=== PATIENT | male | born 1955 | race Caucasian/White ===

== ENCOUNTER → 2016-10-31 | Outpatient (CLI) | payer OTHER ==
[~2016-10-31] MED LIST: ALDA25TA2 PO; ASPI1TAB PO; CAPOTEN PO; LANO250T15 PO; LIPI20TA PO; TOPR25TA PO; TYLE325T5 PO
[2016-10-31 09:01] LABS: MEAN CORPUSCULAR HEMOGLOBIN 29.6 pg (27.0-33.0); MEAN CORPUSCULAR HGB CONC 35.1 g/dl (32.0-36.5); MEAN CORPUSCULAR VOLUME 84.3 fl (80.0-96.0); WHITE BLOOD COUNT 7.9 K/mm3 (4.0-10.0)
[2016-10-31 09:24] LABS: ANION GAP 9 MEQ/L (8-16); BLOOD UREA NITROGEN 16 MG/DL (7-18); CALCIUM LEVEL 8.3 MG/DL (8.8-10.2); CARBON DIOXIDE LEVEL 23 MEQ/L (21-32); CHLORIDE LEVEL 108 MEQ/L (98-107); CHOLESTEROL LEVEL 179 MG/DL (<200); CREATININE FOR GFR 0.76 MG/DL (0.70-1.30); GLOMERULAR FILTRATION RATE > 60.0 (>49); GLUCOSE, FASTING 93 MG/DL (80-110); POTASSIUM SERUM 4.2 MEQ/L (3.5-5.1); SODIUM LEVEL 140 MEQ/L (136-145); TRIGLYCERIDES LEVEL 251 MG/DL (<150)
== END ==
LOC: M WUC 08:25
PROVIDERS: ATTEND Internal Medicine Cardiovascular Disease
DX: E11.9 Type 2 diabetes mellitus without complications (principal); I42.0 Dilated cardiomyopathy; E78.2 Mixed hyperlipidemia

== ENCOUNTER → 2017-11-12 | Outpatient (CLI) | payer OTHER ==
[~2017-11-12] MED LIST changes: -ALDA25TA2 PO; -ASPI1TAB PO; -CAPOTEN PO; +GASTROGRAFIN SOLUTION 30ML (Q9963) As Ordered; +ISOVUE-370 76% 100ML VIAL (Q9967) As Ordered; -LANO250T15 PO; -LIPI20TA PO; -TOPR25TA PO; -TYLE325T5 PO
== END ==
LOC: M RAD 16:03
DX: R19.7 Diarrhea, unspecified (principal); K57.90 Diverticulosis of intestine, part unspecified, without perforation or abscess without bleeding
CPT/HCPCS: Q9963

== ENCOUNTER → 2019-06-17 | Outpatient (CLI) | payer OTHER, SELFPAY ==
[~2019-06-17] MED LIST changes: +ALDA25TA2 PO; +ASPI81TA26 PO; +CAPOTEN PO; +CARV12.5 PO; +CIPR-249 PO; +FLAG500T PO; -GASTROGRAFIN SOLUTION 30ML (Q9963) As Ordered; -ISOVUE-370 76% 100ML VIAL (Q9967) As Ordered; +LANO250T15 PO; +LIPI20TA PO; +LISI-1046 PO; +MILK120011 PO; +TOPR25TA PO; +TRAM1CAP15 PO; +TRAM50TA2 PO; +TYLE325T5 PO
[2019-06-17 15:29] LABS: APPEARANCE, URINE CLEAR (CLEAR); BACTERIA, URINE AUTO NEGATIVE (NEGATIVE); BILIRUBIN, URINE AUTO NEGATIVE (NEGATIVE); BLOOD, URINE BLOOD NEGATIVE (NEGATIVE); COLOR, URINE YELLOW (YELLOW); GLUCOSE, URINE (UA) AUTO NEGATIVE (NEGATIVE); KETONE, URINE AUTO NEGATIVE (NEGATIVE); LEUKOCYTE ESTERASE, URINE AUTO NEGATIVE (NEGATIVE); MUCUS, URINE SMALL (NEGATIVE); NITRITE, URINE AUTO NEGATIVE (NEGATIVE); PROTEIN, URINE AUTO NEGATIVE (NEGATIVE); RBC, URINE AUTO 1 /HPF (0-3); SPECIFIC GRAVITY URINE AUTO 1.017 (1.002-1.035); SQUAMOUS EPITHELIAL CELL UR AU 0 /HPF (0-6); UROBILINOGEN, URINE AUTO 0.2 mg/dL (0.0-2.0); WBC, URINE AUTO 0 /HPF (0-3)
[2019-06-17 15:32] LABS: HEMATOCRIT 45.1 % (42.0-52.0); HEMOGLOBIN 15.1 g/dl (13.5-17.5); MEAN CORPUSCULAR HGB CONC 33.5 g/dl (32.0-36.5); MEAN CORPUSCULAR VOLUME 86.6 fl (80.0-96.0); PLATELET COUNT, AUTOMATED 213 10^3/uL (150-450); RED BLOOD COUNT 5.21 10^6/uL (4.30-6.10); WHITE BLOOD COUNT 9.5 10^3/uL (4.0-10.0)
[2019-06-17 15:40] LABS: HEMOGLOBIN A1c 5.9 %
[2019-06-17 15:41] LABS: ALT/SGPT 28 U/L (12-78); BILIRUBIN,TOTAL 0.5 MG/DL (0.2-1.0); BLOOD UREA NITROGEN 15 MG/DL (7-18); CALCIUM LEVEL 8.9 MG/DL (8.8-10.2); CARBON DIOXIDE LEVEL 22 MEQ/L (21-32); CHLORIDE LEVEL 107 MEQ/L (98-107); CREATININE FOR GFR 0.79 MG/DL (0.70-1.30); GLOMERULAR FILTRATION RATE > 60.0 (>49); GLUCOSE, FASTING 108 MG/DL (70-100); POTASSIUM SERUM 3.8 MEQ/L (3.5-5.1); SODIUM LEVEL 138 MEQ/L (136-145)
== END ==
LOC: M WUC 14:17
PROVIDERS: ATTEND Family Medicine
DX: Z12.5 Encounter for screening for malignant neoplasm of prostate (principal); R39.15 Urgency of urination; I50.42 Chronic combined systolic (congestive) and diastolic (congestive) heart failure; R73.09 Other abnormal glucose
CPT/HCPCS: 36415; 80053; 81001; 83036; 85027; 87086; G0103

== ENCOUNTER → 2019-06-22 | Outpatient (REF) | payer OTHER, SELFPAY ==
[2019-06-22 13:04] LABS: CHOLESTEROL RISK RATIO 5.064 (<5)
== END ==
LOC: M SFHCADAM 10:17
PROVIDERS: ATTEND Family Medicine
DX: E78.2 Mixed hyperlipidemia (principal)

== ENCOUNTER → 2020-04-13 | Outpatient (CLI) | payer OTHER ==
[~2020-04-13] MED LIST changes: -LISI-1046 PO; +LISI2.5T2 PO
--- NOTE | 2020-04-13 17:19 | REP ---
INDICATION: ARTHRITIS OF RIGHT HAND. COMPARISON: None. TECHNIQUE: Four views. FINDINGS: Four views of the right hand demonstrate moderate osteoarthritic narrowing and spur formation at the 1st metacarpal-carpal articulation. There is mild osteoarthritic spurring at the IP joint of the thumb as well as the DIP joints of the index, long, and small fingers. No erosive changes are appreciated. Overall mineralization pattern is normal.. No fracture or subluxation is seen. No opaque foreign body noted. IMPRESSION: Osteoarthritic changes as noted above.. <Electronically signed by Sourav Henry > 04/13/20 [id number]
--- NOTE | 2020-04-13 17:21 | REP ---
INDICATION: LOW BACK PAIN OF OVER 3 MONTHS DURATION. COMPARISON: None. TECHNIQUE: Five views. FINDINGS: Lumbar vertebral body heights are preserved. Alignment is normal. There is no evidence of spondylolysis or spondylolisthesis. There is degenerative narrowing of the L4-5 disc with anterior osteophyte formation. Other disc spaces are maintained. There is minimal vascular calcification. There is facet hypertrophy and sclerosis on the right at L5-S1. Sacrum and SI joints are intact. Psoas margins are symmetric. Visualized bowel gas pattern is unremarkable. No bony destructive lesion. IMPRESSION: Degenerative disc changes at L4-5. Osteoarthritic facet disease on the right at L5-S1. No acute bony abnormality. <Electronically signed by Sourav Henry > 04/13/20 [id number]
== END ==
LOC: M ADAMS 16:01
PROVIDERS: ATTEND Family Medicine
DX: M19.041 Primary osteoarthritis, right hand (principal); M51.36 Other intervertebral disc degeneration, lumbar region; M54.5 Low back pain

== ENCOUNTER → 2020-04-13 | Outpatient (REF) | payer OTHER ==
[2020-04-13 18:26] LABS: HEMATOCRIT 44.4 % (42.0-52.0); HEMOGLOBIN 15.2 g/dl (13.5-17.5); MEAN CORPUSCULAR HEMOGLOBIN 29.5 pg (27.0-33.0); MEAN CORPUSCULAR HGB CONC 34.2 g/dl (32.0-36.5); PLATELET COUNT, AUTOMATED 227 10^3/uL (150-450); RED BLOOD COUNT 5.16 10^6/uL (4.30-6.10); WHITE BLOOD COUNT 10.2 10^3/uL (4.0-10.0)
[2020-04-13 18:58] LABS: ALBUMIN 3.9 GM/DL (3.2-5.2); ALT/SGPT 30 U/L (12-78); BILIRUBIN,TOTAL 0.3 MG/DL (0.2-1.0); BLOOD UREA NITROGEN 18 MG/DL (7-18); C REACTIVE PROTEIN QUANTITATIV 0.94 MG/DL (0.00-0.30); CALCIUM LEVEL 9.3 MG/DL (8.8-10.2); CARBON DIOXIDE LEVEL 23 MEQ/L (21-32); CHLORIDE LEVEL 104 MEQ/L (98-107); CHOLESTEROL LEVEL 190 MG/DL (<200); CHOLESTEROL RISK RATIO 5.588 (<5); CREATININE FOR GFR 0.77 MG/DL (0.70-1.30); GLOMERULAR FILTRATION RATE > 60.0 (>49); GLUCOSE, FASTING 91 MG/DL (70-100); HDL CHOLESTEROL 34 MG/DL (>40); LDL CHOLESTEROL 92 MG/DL (<100); NON-HDL-C 156 MG/DL; POTASSIUM SERUM 3.8 MEQ/L (3.5-5.1); RHEUMATOID FACTOR QUANT < 10.0 IU/ML (<15.0); SODIUM LEVEL 139 MEQ/L (136-145); TOTAL PROTEIN 7.1 GM/DL (6.4-8.2); TRIGLYCERIDES LEVEL 318 MG/DL (<150)
[2020-04-16 18:16] LABS: ANA (HEP2) Negative (.)
== END ==
LOC: M SFHCADAM 15:55
PROVIDERS: ATTEND Family Medicine
DX: I42.0 Dilated cardiomyopathy (principal); R73.09 Other abnormal glucose; E78.2 Mixed hyperlipidemia; Z12.5 Encounter for screening for malignant neoplasm of prostate; M19.041 Primary osteoarthritis, right hand; M54.5 Low back pain

== ENCOUNTER → 2020-10-03 | Outpatient (REF) | payer OTHER ==
[2020-10-03 13:18] LABS: HEMATOCRIT 45.7 % (42.0-52.0); MEAN CORPUSCULAR HEMOGLOBIN 28.4 pg (27.0-33.0); MEAN CORPUSCULAR HGB CONC 32.8 g/dl (32.0-36.5); MEAN CORPUSCULAR VOLUME 86.4 fl (80.0-96.0); PLATELET COUNT, AUTOMATED 222 10^3/uL (150-450); RED BLOOD COUNT 5.29 10^6/uL (4.30-6.10); WHITE BLOOD COUNT 7.4 10^3/uL (4.0-10.0)
[2020-10-03 13:39] LABS: HEMOGLOBIN A1c 5.4 %
[2020-10-03 14:10] LABS: ALBUMIN 3.8 GM/DL (3.2-5.2); ALT/SGPT 25 U/L (12-78); BILIRUBIN,TOTAL 0.4 MG/DL (0.2-1.0); BLOOD UREA NITROGEN 13 MG/DL (7-18); CALCIUM LEVEL 9.1 MG/DL (8.8-10.2); CARBON DIOXIDE LEVEL 23 MEQ/L (21-32); CHLORIDE LEVEL 107 MEQ/L (98-107); CHOLESTEROL LEVEL 151 MG/DL (<200); CHOLESTEROL RISK RATIO 4.718 (<5); CREATININE FOR GFR 0.55 MG/DL (0.70-1.30); GLOMERULAR FILTRATION RATE > 60.0 (>49); GLUCOSE, FASTING 80 MG/DL (70-100); HDL CHOLESTEROL 32 MG/DL (>40); LDL CHOLESTEROL 75 MG/DL (<100); NON-HDL-C 119 MG/DL; POTASSIUM SERUM 4.3 MEQ/L (3.5-5.1); SODIUM LEVEL 138 MEQ/L (136-145); TOTAL PROTEIN 6.6 GM/DL (6.4-8.2); TRIGLYCERIDES LEVEL 220 MG/DL (<150)
[2020-10-03 14:11] LABS: FREE T4 0.95 NG/DL (0.76-1.46); THYROID STIMULATING HORMONE 0.977 uIU/ML (0.358-3.740)
== END ==
LOC: M SFHCADAM 09:06
PROVIDERS: ATTEND Family Medicine
DX: I42.0 Dilated cardiomyopathy (principal); I50.42 Chronic combined systolic (congestive) and diastolic (congestive) heart failure; E78.2 Mixed hyperlipidemia; R73.09 Other abnormal glucose

== ENCOUNTER 2020-12-16 11:41 | Inpatient (IN) | payer OTHER ==
[~2020-12-16] VITALS: Ht 177.8 cm; Wt 97.8 kg
[2020-12-16] VITALS (12 sets, daily range): BP systolic 100–142; BP diastolic 63–97
[2020-12-16] MEDS: MOM 30ML SUSPENSION UDC PO SCH (09:00)
[2020-12-16] MEDS ORDERED: LOSA25TA14 PO (12:05)
[2020-12-16 12:13] LABS: BASO # 0.1 10^3/uL (0.0-0.2); BASO % 0.6 % (0.0-1.0); EOS # 0.2 10^3/uL (0.0-0.5); HEMATOCRIT 45.4 % (42.0-52.0); HEMOGLOBIN 15.8 g/dl (13.5-17.5); LYMPH # 2.1 10^3/uL (1.5-5.0); MEAN CORPUSCULAR HEMOGLOBIN 29.5 pg (27.0-33.0); MEAN CORPUSCULAR HGB CONC 34.8 g/dl (32.0-36.5); MEAN CORPUSCULAR VOLUME 84.7 fl (80.0-96.0); MONO # 0.7 10^3/uL (0.0-0.8); NEUTROPHILS # 4.9 10^3/uL (1.5-8.5); NEUTROPHILS % 60.8 % (36.0-66.0); PLATELET COUNT, AUTOMATED 216 10^3/uL (150-450); RED BLOOD COUNT 5.36 10^6/uL (4.30-6.10); WHITE BLOOD COUNT 8.1 10^3/uL (4.0-10.0)
--- NOTE | 2020-12-16 12:28 | REP ---
INDICATION: DYSPNEA/COUGH COMPARISON: 01/17/2015 TECHNIQUE: Portable AP view of the chest FINDINGS: There is a large right pneumothorax with greater than 50% loss of volume. The mediastinum and cardiac silhouette are within normal limits in appearance and position. The left hemithorax is well aerated and clear. Skeletal structures are intact. IMPRESSION: Large right pneumothorax. Findings were immediately discussed with ER staff. <Electronically signed by Navin Kohler > 12/16/20 [id number]
[2020-12-16] MEDS ORDERED: MIDAZOLAM INJ 2MG/2ML VIAL (J2250 PER 1MG) As Ordered ONE ×2 (12:46→12:47)
[2020-12-16] MEDS ORDERED: MIDAZOLAM INJ 2MG/2ML VIAL (J2250 PER 1MG) IV ONE ×2 (12:46→12:47)
[2020-12-16] MEDS ORDERED: flumazeniL 0.5 MG/5 ML VIAL As Ordered ONE (12:46)
[2020-12-16] MEDS ORDERED: LIDOCAINE 1% MDV 20ML VIAL SC ONE (12:47)
[2020-12-16] MEDS ORDERED: LIDOCAINE 1% MDV 20ML VIAL As Ordered ONE (12:47)
[2020-12-16 12:51] LABS: ALBUMIN 3.9 GM/DL (3.2-5.2); ALT/SGPT 72 U/L (12-78); BILIRUBIN,DIRECT < 0.1 MG/DL (0.0-0.2); BILIRUBIN,TOTAL 0.5 MG/DL (0.2-1.0); BLOOD UREA NITROGEN 13 MG/DL (7-18); CALCIUM LEVEL 8.7 MG/DL (8.8-10.2); CARBON DIOXIDE LEVEL 21 MEQ/L (21-32); CHLORIDE LEVEL 107 MEQ/L (98-107); CK-MB VALUE MASS 2.5 NG/ML (<3.6); CPK CREATINE PHOSPHOKINASE 163 U/L (39-308); GLOMERULAR FILTRATION RATE > 60.0 (>49); GLUCOSE, FASTING 121 MG/DL (70-100); MB/CK RELATIVE INDEX 1.53 (< OR =4); POTASSIUM SERUM 4.7 MEQ/L (3.5-5.1); SODIUM LEVEL 135 MEQ/L (136-145); TOTAL PROTEIN 7.1 GM/DL (6.4-8.2); TROPONIN I < 0.02 NG/ML (< 0.10)
[2020-12-16] MEDS ORDERED: ACET-907 PO (13:31)
[2020-12-16] MEDS ORDERED: CARV12.5 PO (13:31)
[2020-12-16] MEDS ORDERED: ONDANSETRON 4MG/2ML VIAL IV PRN (13:35)
[2020-12-16] MEDS ORDERED: BISACODYL 10 MG SUPP PR PRN (13:35)
[2020-12-16] MEDS ORDERED: ACETAMINOPHEN TAB 650MG DOSE (2X325MG) PO PRN (13:35)
[2020-12-16] MEDS ORDERED: LEVALBUTEROL 1.25 MG/0.5 ML CONCENTRATE NEB NEB PRN (13:35)
[2020-12-16] MEDS ORDERED: KCL 20MEQ IN D5/NS 1000ML 1,000 ML IV SCH (13:35)
--- NOTE | 2020-12-16 13:50 | REP ---
INDICATION: chest tube placement COMPARISON: 12/16/2020 at 12:06 p.m. TECHNIQUE: Portable AP view of the chest FINDINGS: Right-sided chest tube has been placed and the right lung has been re-expanded with only small residual right apical pneumothorax suggested. Lung lipscomb demonstrate chronic interstitial changes. Small area of superimposed atelectasis in the right midlung zone and possible atelectasis at the bilateral lung bases suggested. No effusion. Stable cardiomegaly. Skeletal structures intact. IMPRESSION: 1. Status post right chest tube with near complete expansion of the right lung. 2. Chronic changes and minimal atelectasis cannot be excluded. <Electronically signed by Navin Kohler > 12/16/20 [id number]
[2020-12-16 14:26] LABS: INR 0.99; PROTHROMBIN TIME 13.3 SECONDS (12.5-14.3)
[2020-12-16 14:27] LABS: PARTIAL THROMBOPLASTIN TIME 27.5 SECONDS (24.2-38.5)
[2020-12-16] MEDS: LEVALBUTEROL 1.25 MG/0.5 ML CONCENTRATE NEB NEB SCH ×2 (14:34→21:25)
[2020-12-16] MEDS: KETOROLAC 30 MG/ML 1ML VIAL IV SCH ×2 (14:48→21:25)
--- NOTE | 2020-12-16 14:48 | REP ---
INDICATION: status of underlying lung after pneumothorax COMPARISON: 01/17/2015 TECHNIQUE: Axial noncontrast images from the thoracic inlet to the upper abdomen with coronal and sagittal reformations. This CT examination was performed using the following dose reduction techniques: Automated exposure control, adjustment of mA and/or kv according to the patient's size, and use of iterative reconstruction technique. FINDINGS: Right-sided chest tube via anterior approach extends into the apex. Small amount of postprocedural subcutaneous emphysema noted and no residual pneumothorax is identified. Small amount of right basilar atelectasis noted. Lung lipscomb demonstrate advanced chronic COPD/emphysematous changes along with scattered scarring. Tracheobronchial tree is patent. Stable mediastinal adenopathy noted. Mild stable cardiomegaly. Thoracic aorta is normal. Musculoskeletal structures are intact. IMPRESSION: 1. Right chest tube via anterior approach extends to the apex. No residual pneumothorax. 2. Minimal right basilar atelectasis. 3. Chronic advanced COPD/emphysematous changes with scattered scarring. <Electronically signed by Navin Kohler > 12/16/20 [id number]
[2020-12-16] MEDS: PANTOPRAZOLE 40MG TAB (PROTONIX) PO SCH (14:56)
[2020-12-16 15:12] LABS: RSV AMPLIFICATION NEGATIVE (NEGATIVE)
[2020-12-16] MEDS: NORCO, ANEXSIA 5/325MG TABLET (HYDROcodone/ACETAMINOPHEN) PO PRN (16:32)
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
[2020-12-16] MEDS: HEPARIN SOD (PORCINE) 5000UNITS/ML 1ML VIAL/SYRINGE SC SCH (17:52)
[2020-12-16] MEDS: PERCOCET 5MG/325MG TAB PO PRN (18:57)
--- NOTE | 2020-12-16 19:18 | ECGEPIP ---
[facility] - ED Test Date: 2020-12-16 Pat Name: AFSANEH MEZA Department: Room: [place] [address] Gender: Male Security Clerk: PEDRITO : [id number] Requested By: Roberto Zuleta Order Number: [id number] Reading MD: Roberto Zuleta Measurements Intervals [place] Rate: 103 P: OK: QRS: -74 QRSD: 132 T: 61 QT: 374 QTc: 489 Interpretive Statements Atrial fibrillation with rapid ventricular response Left axis deviation Nonspecific intraventricular block Cannot rule out Septal infarct , age undetermined Nonspecific ST T wave changes Prolonged QTc cw 01/19/[address] T wave changes Electronically Signed on 12-16-2020 19:17:51 EDT by Roberto Zuleta
[2020-12-16] MEDS ORDERED: LOSARTAN 25 MG TAB PO SCH (21:00)
[2020-12-16] MEDS: DOCUSATE SODIUM 100MG CAPSULE PO SCH (21:24)
[2020-12-16] MEDS: CARVedilol 12.5 MG TAB PO SCH (21:24)
[2020-12-17] VITALS (7 sets, daily range): BP systolic 92–118; BP diastolic 58–73
[2020-12-17] MEDS: KETOROLAC 30 MG/ML 1ML VIAL IV SCH ×4 (03:45→20:52)
[2020-12-17 05:37] LABS: BASO % 0.5 % (0.0-1.0); EOS # 0.3 10^3/uL (0.0-0.5); EOS % 4.1 % (0.0-3.0); HEMATOCRIT 40.8 % (42.0-52.0); HEMOGLOBIN 13.8 g/dl (13.5-17.5); LYMPH # 2.2 10^3/uL (1.5-5.0); LYMPH % 28.4 % (24.0-44.0); MEAN CORPUSCULAR HEMOGLOBIN 29.1 pg (27.0-33.0); MEAN CORPUSCULAR HGB CONC 33.8 g/dl (32.0-36.5); MEAN CORPUSCULAR VOLUME 85.9 fl (80.0-96.0); MONO # 0.9 10^3/uL (0.0-0.8); MONO % 12.1 % (2.0-8.0); NEUTROPHILS # 4.2 10^3/uL (1.5-8.5); NEUTROPHILS % 54.6 % (36.0-66.0); PLATELET COUNT, AUTOMATED 164 10^3/uL (150-450); RED BLOOD COUNT 4.75 10^6/uL (4.30-6.10); WHITE BLOOD COUNT 7.8 10^3/uL (4.0-10.0)
[2020-12-17 05:38] LABS: ABG BASE EXCESS -2.9 (-2.0-2.0); ABG O2 SATURATION 94.3 % (95.0-99.0); ABG PARTIAL PRESSURE CO2 34.1 mmHg (35.0-45.0); ABG PARTIAL PRESSURE O2 70.8 mmHg (75.0-100.0); ABG pH (ARTERIAL) 7.407 UNITS (7.350-7.450)
[2020-12-17] MEDS: HEPARIN SOD (PORCINE) 5000UNITS/ML 1ML VIAL/SYRINGE SC SCH (05:52)
[2020-12-17 06:04] LABS: BLOOD UREA NITROGEN 19 MG/DL (7-18); CALCIUM LEVEL 8.4 MG/DL (8.8-10.2); CARBON DIOXIDE LEVEL 22 MEQ/L (21-32); CHLORIDE LEVEL 108 MEQ/L (98-107); CREATININE FOR GFR 0.72 MG/DL (0.70-1.30); GLOMERULAR FILTRATION RATE > 60.0 (>49); GLUCOSE, FASTING 100 MG/DL (70-100); POTASSIUM SERUM 3.8 MEQ/L (3.5-5.1); SODIUM LEVEL 139 MEQ/L (136-145)
[2020-12-17] MEDS: LEVALBUTEROL 1.25 MG/0.5 ML CONCENTRATE NEB NEB SCH ×3 (07:24→19:50)
--- NOTE | 2020-12-17 08:32 | REP ---
INDICATION: pnemothx COMPARISON: 12/16/2020 TECHNIQUE: PA and lateral. FINDINGS: Right-sided chest tube extends towards the apex and the right lung has been re-expanded with suspected bullous changes primarily noted at the right upper lung zone. No obvious residual pneumothorax. Diffuse chronic emphysematous and interstitial changes with suggestions for trace basilar atelectasis. No discrete focal consolidation. No obvious effusion. Mediastinum and cardiac silhouette are stable. Skeletal structures are intact. IMPRESSION: 1. Re-expansion to the right lung with suspected bullous changes at the right apex and no obvious residual pneumothorax. 2. Diffuse chronic emphysematous and interstitial changes with suspected trace left basilar atelectasis. <Electronically signed by Navin Kohler > 12/17/20 [id number]
[2020-12-17] MEDS ORDERED: ASPIRIN 81MG ENTERIC TABLET PO SCH (09:00)
[2020-12-17] MEDS: DOCUSATE SODIUM 100MG CAPSULE PO SCH ×2 (09:25→20:53)
[2020-12-17] MEDS: MOM 30ML SUSPENSION UDC PO SCH (09:26)
[2020-12-17] MEDS: CARVedilol 12.5 MG TAB PO SCH (09:26)
[2020-12-17] MEDS: PANTOPRAZOLE 40MG TAB (PROTONIX) PO SCH (09:26)
[2020-12-17 10:31] LABS: FREE T4 0.89 NG/DL (0.76-1.46); MAGNESIUM LEVEL 2.2 MG/DL (1.8-2.4)
[2020-12-17 11:10] LABS: NT-PRO BNP 1466 PG/ML (<125)
[2020-12-17] MEDS: PERCOCET 5MG/325MG TAB PO PRN (11:10)
--- NOTE | 2020-12-17 12:15 | IPN ---
PROGRESS NOTE DATE: 12/17/2020 SUBJECTIVE: Hilton is seen in the PCU. He had a spontaneous right pneumothorax and has extensive emphysema with blebs on CT of the chest. He used to smoke cigarettes. He still smokes marijuana on an almost daily basis so there is constant smoke exposure. We discussed this at length today. He is still in atrial fibrillation. His rate is controlled. He has a history of viral-induced cardiomyopathy, but not has not had atrial fibrillation. His glassware verifier is the cardiology group out of [facility]. OBJECTIVE: VITAL SIGNS: Blood pressure 112/73, pulse 86, respirations 18, 93% O2 saturation. GENERAL APPEARANCE: Alert, conversant, and in no distress. NECK: No JVD. LUNGS: Decreased breath sounds and clear bilaterally. HEART: Regular rate and rhythm. ABDOMEN: Soft and nontender with no masses. EXTREMITIES: No peripheral edema. LABORATORY DATA: CBC is unremarkable. Electrolytes unremarkable. IMPRESSION AND PLAN: 1. Atrial fibrillation. We will get an echocardiogram, run some thyroid functions on him, and start anticoagulant with Eliquis. Will consult cardiology and see whether they think he is a candidate for attempt at conversion. 2. Spontaneous pneumothorax from emphysema/blebs. Chest tube management per Dr. Klein. The importance of stopping smoking of any kind of product discussed at length with the patient today.
--- NOTE | 2020-12-17 12:38 | HPE ---
HISTORY AND PHYSICAL DATE OF ADMISSION: 12/16/2020 Patient seen at the urgent request of the emergency room for shortness of breath, chest pain, and a right pneumothorax. HISTORY OF PRESENT ILLNESS: Patient is a 65-year-old white male who early this morning as he woke up experienced sudden onset of the shortness of breath with chest pressure. He has a known cardiomyopathy, treated by cardiology in [place]. He sought medical attention and was found to have a large right-sided pneumothorax. Prior to the episode he had no cough, no fever, chills, or sweats, and no sputum production. He has had no chest pain prior to this event and no dysphagia. There has been no weight loss. MEDICAL HISTORY: The above cardiomyopathy and hypertension. Denies diabetes or prior cerebrovascular accidents (CVAs). 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 PAST SURGERIES: 1. Umbilical hernia. 2. Tympanic ear surgery in the remote past. HOME MEDICATIONS: - Tylenol 650 mg four times a day as needed for pain - aspirin 81 mg daily - carvedilol 12.5 mg twice a day - losartan 25 mg every night HABITS: Smokes about a pack of cigarettes a week but also indulges in marijuana daily. Drinks socially about once a week. No other illicit drugs. EXPOSURES: Has cats at home. No dogs or birds. TRAVEL HISTORY: He has been to the [facility] in the past. He has also been to the [facility] and [facility]. 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 FAMILY HISTORY: Not pertinent to the acute situation. REVIEW OF SYSTEMS: CONSTITUTIONAL: Without fever, chills, sweats, night sweats, or weight loss. NOSE: Without epistaxis. MOUTH: Has his own teeth. PULMONARY: See history of present illness (HPI). Without paroxysmal nocturnal dyspnea or orthopnea. Cannot get comfortable on his back right now. Has to lie on his left side. CARDIAC: Has the above cardiomyopathy. He was found to be in new-onset atrial fibrillation today in the emergency room with a controlled rate of about 100. Also has hypertension. No intermittent claudication. GASTROINTESTINAL: Without nausea, vomiting, diarrhea, constipation, melena, or hematochezia, abdominal pain, or hematemesis. GENITOURINARY: Without dysuria, hematuria, or history of renal stones. NEUROLOGIC: Without paresthesias, paralyses, or prior seizures. HEMATOLOGIC: Without prolonged bleeding times. ENDOCRINE: Without diabetes. Without thyroid disease. PSYCHIATRIC: Without pathological anxieties, depressions, or psychoses. PHYSICAL EXAMINATION: Well-developed, well-nourished, obese white male in moderate distress from shortness of breath, lying on his left side. Temperature 97.7, heart rate is 106 in atrial fibrillation with a respiratory rate of 20-24 without the use of accessory muscles, who is 91% saturated on 2 liters nasal cannula and whose blood pressure is 142/87. Eyes: Pupils equal, round, reactive to light. Extraocular movements are intact. Sclerae anicteric. He is blind in his left eye from prior trauma. Nose without deformity. Mouth shows his mucous membranes to be pink and moist. Lips and commissures without lesions. He has multiple missing teeth. Neck is supple. There is no jugular venous distention. No subcutaneous emphysema. Trachea is midline. There is no lymphadenopathy or thyromegaly. He has 2+ carotid pulses. No bruits. Lungs show markedly decreased breath sounds on the right side with hyperresonant percussion note on the right side. I hear no wheezes, rhonchi, or rales in the left lung. Cardiac exam is without murmurs, clicks, gallops, or rubs. I cannot feel his point of maximal impulse (PMI). S1 and S2 are normal. Abdomen is soft and nontender. Bowel sounds are positive. There is no hepatomegaly. No costovertebral angle (CVA) tenderness. Extremities show no pretibial edema, no calf tenderness, no differential swelling of the upper extremities. Skin is warm, dry, and perfused without cyanosis or mottling, including that of the nailbeds and knees. Neurologic shows II-XII intact. Normal gross motor, gross sensation intact. Gait is not tested. Psychiatric shows him to be awake, alert, and oriented times three with appropriate mood and affect and conversational. His white count today is 8.1 with a hemoglobin and hematocrit of 15.8 and 45.4, respectively. Platelet count is 216, and differential shows 16% neutrophils, 26% lymphocytes, 9% monocytes. There are no immature forms or toxic granulations. Chemistries show essentially normal electrolytes with a marginally low sodium of 135. BUN and creatinine of 13 and 0.6 with a glucose of 121, calcium 8.7, and a corresponding albumin of 3.9. AST and ALT are normal. CK-MB and troponins are normal. There is no PT/INR, and there are no blood gases. His chest x-ray shows a 75%-80% pneumothorax on the right. His Costophrenic angles are sharp with a deep sulcus sign. The mediastinum is in the midline. He has a rather globular heart. IMPRESSION: 1. Acute pneumothorax. 2. Shortness of breath. 3. History of cardiomyopathy. 4. Hypertension. 5. New-onset atrial fibrillation with controlled response. PLAN AND DISCUSSION: I will immediately place an anterior-superior chest tube. His last echocardiogram done in 2018 showed decreased ejection fraction of 35%-40%. He had a dilated left atrium. He had mild to moderate mitral insufficiency. After placing the chest tube, I am hoping that the pressure changes in the thorax will normalize, and his rhythm will return to sinus rhythm. He has not been in atrial fibrillation before, evidently, according to the patient. His prior EKGs, the latest of which was in 2014, showed a sinus rhythm. I will ask Dr. Larson of the hospitalist group to consult on him for management of atrial fibrillation if it does not resolve itself in the next 24 hours. I do not think we need to anticoagulate him right away. I do worry about his cardiomyopathy. I am not sure what that is secondary to. I will also obtain a CT scan on him tomorrow to look at the underlying lung parenchyma.
--- NOTE | 2020-12-17 12:56 | IPN ---
PROGRESS NOTE DATE: 12/17/2020 This is now the first hospital day for Mr. Padilla status post placing a chest tube for an 80% pneumothorax. He is certainly breathing a whole lot better and feels a lot less in distress. Pain is being controlled well at the chest tube insertion site with oral analgesics. His vital signs show a maximum temperature of 97.7 with a heart rate that ranges between 82-89 in atrial fibrillation with a respiratory rate of 16-20 without the use of accessory muscles, who is 93%-96% saturated on room air and whose blood pressure is ranging between 112/73 to 100/58. His intake and output for the past 24 hours have been recorded as 600 in and 520 out for a negativity of 70 mL. His weight today is 97.6 kg compared to 97.9 kg yesterday. PHYSICAL EXAMINATION: His lungs show equal breath sounds on either side without wheezes, rhonchi, or rales. Percussion notes are full to the diaphragm. Cardiac exam is without murmurs, clicks, gallops, or rubs. I cannot feel his point of maximal impulse (PMI). S1 and S2 are normal. Abdomen is soft and nontender. Bowel sounds are positive. There is no hepatomegaly. No costovertebral angle (CVA) tenderness. Extremities show no pretibial edema, no calf tenderness, no differential swelling of the upper extremities. Skin is warm, dry, and perfused without cyanosis or mottling, including that of the nailbeds and knees. Neck is supple. There is no jugular venous distention. No subcutaneous emphysema. Trachea is midline. Mouth shows the mucous membranes to be pink and moist. Lips and commissures without lesions. No thrush. Eyes show his pupils to be equal and reactive. Extraocular motion intact. Sclerae anicteric. Neurologic shows II-XII intact. Normal gross motor, gross sensation intact. Gait is not tested. Psychiatric shows him to be awake, alert, and oriented times three with appropriate mood and affect and conversational. His white count today is 7.8 with a hemoglobin and hematocrit of 13.8 and 40.8, respectively. Platelet count is 164 and stable, and differential shows 54% neutrophils, 28% lymphocytes, 12% monocytes. There are no immature forms or toxic granulations. His chemistries show normal electrolytes with a BUN and creatinine of 19 and 0.72, a glucose of 100, and a calcium of 8.4. Blood gases this morning show a pH of 7.40 with a pCO2 of 34, a pO2 of 70, and a base excess of -2.9. His PT/INR yesterday was returned as 13.3 and 0.99, respectively, with a PTT of 27 seconds. He is COVID negative. His chest x-ray today shows his lung fully expanded to the chest wall. Costophrenic angles are sharp. There are no infiltrates. His chest CT done yesterday after placing the chest tube shows major emphysematous changes, particularly in the upper lobes. It was done without contrast. He does have coronary artery disease down the left anterior descending coronary artery as well as some calcifications on the circumflex coronary artery. Liver is without lesions. Adrenals have a normal configuration. I see no pulmonary masses. He does have a prominent right paratracheal node, which measures 1.4 cm in its largest dimension. IMPRESSION: 1. Spontaneous pneumothorax. 2. Emphysema. 3. Dilated cardiomyopathy. 4. New-onset atrial fibrillation. 5. Obesity. 6. Hypertension. PLAN AND DISCUSSION: I will take his chest tubes off suction today. We are going to wait another maybe 24 hours for him to convert. In the meantime I will anticoagulate if he does not convert and if he needs other chemical or electrical cardioversion.
--- NOTE | 2020-12-17 13:01 | RO ---
OPERATIVE NOTE DATE OF OPERATION: 12/16/2020 PREPROCEDURE DIAGNOSIS: Right pneumothorax. POSTPROCEDURE DIAGNOSIS: Right pneumothorax. PROCEDURE: Insertion of a right anterior-superior chest tube under moderate sedation. SURGEON: Dane Klein M.D. SUGAR HOUSE SUPERVISOR: None. ANESTHESIA: Moderate sedation with 4 mg Versed. DESCRIPTION OF PROCEDURE: Under moderate sedation achieved with 4 mg of Versed, the patient was prepped and draped in the usual sterile fashion. The skin, subcutaneous tissue, and pleura over the second rib were infiltrated with 1% Lidocaine. A tunnel was created to the first intercostal space above the second rib. A #20 chest tube was placed without difficulty. Secured to the chest wall with a#2 Tevdek suture and connected to the Pleur-Evac. The patient tolerated the procedure well and a chest x-ray is pending.
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
[2020-12-17] MEDS ORDERED: RIVAROXABAN 10 MG TAB (XARELTO) PO SCH (18:00)
--- NOTE | 2020-12-17 18:08 | ECHO ---
ECHOCARDIOGRAM DATE OF PROCEDURE: 12/17/2020 Age: 65 Gender: Male Height: 70 inches Weight: 215 pounds REFERRING PHYSICIAN: Abdelrahman Larson MD INDICATION: Systolic heart failure, dilated cardiomyopathy. MEASUREMENTS: 2D Measurements: Aortic root 3.2 cm Left atrium 3.5 cm Left ventricle diastole 6.0 cm Intraventricular septum 1.06 cm Posterior wall 1.2 cm Inferior vena cava 2.5 cm Doppler Measurements: No aortic stenosis No aortic regurgitation Aortic valve velocity 114 cm/s LVOT velocity 68.7 cm/s LVOT VTI 13.7 cm Very mild mitral regurgitation Very mild tricuspid regurgitation Estimated right ventricular systolic pressure 25-30 mmHg Estimated right atrial pressure 5-10 mmHg Pulmonary acceleration time 121 msec suggesting normal PA systolic pressure. MITRAL ANNULAR TISSUE DOPPLER E prime septal 6.9 cm/s, E prime lateral 12.1 cm/s DESCRIPTION: Rhythm was atrial fibrillation. Image quality was good. This was a 2D, M-mode, color flow Doppler, and pulsed wave Doppler examination including mitral annular tissue Doppler. CONCLUSIONS: 1. Mildly dilated left ventricle at end-diastole. Severe global LV hypokinesis with severe reduction of overall LV systolic function. LVEF 32% (3D). Unable to adequately assess LV diastolic function in the setting of atrial fibrillation. 2. Severe left atrial dilatation. 3. Normal right ventricle size and systolic function. Normal PA systolic pressure and estimated RV systolic pressure. 4. Very mild mitral annular calcification with very mild mitral regurgitation. No mitral valve prolapse. 5. No pericardial effusion. 6. Otherwise normal appearing echocardiogram Doppler findings.
[2020-12-17] MEDS: ENTRESTO 24-26MG TABLET (SACUBITRIL/VALSARTAN) PO SCH (20:52)
[2020-12-17] MEDS: METOPROLOL SUCC (TopROL XL) 50MG **XL** TAB PO SCH (20:53)
[2020-12-17] MEDS: APIXABAN 5 MG TAB (ELIQUIS) PO SCH (20:53)
[2020-12-17] MEDS: NORCO, ANEXSIA 5/325MG TABLET (HYDROcodone/ACETAMINOPHEN) PO PRN (20:53)
[2020-12-18] VITALS: BP 93/60
[2020-12-18] MEDS: LEVALBUTEROL 1.25 MG/0.5 ML CONCENTRATE NEB NEB SCH ×4 (01:53→20:20)
[2020-12-18] MEDS: KETOROLAC 30 MG/ML 1ML VIAL IV SCH ×4 (02:01→20:14)
[2020-12-18 04:00] VITALS: BP 122/84
[2020-12-18 06:00] LABS: BASO % 0.4 % (0.0-1.0); EOS # 0.4 10^3/uL (0.0-0.5); EOS % 4.6 % (0.0-3.0); HEMATOCRIT 41.3 % (42.0-52.0); HEMOGLOBIN 13.7 g/dl (13.5-17.5); LYMPH % 22.1 % (24.0-44.0); MEAN CORPUSCULAR HEMOGLOBIN 28.7 pg (27.0-33.0); MEAN CORPUSCULAR HGB CONC 33.2 g/dl (32.0-36.5); MEAN CORPUSCULAR VOLUME 86.6 fl (80.0-96.0); MONO % 10.8 % (2.0-8.0); NEUTROPHILS # 5.7 10^3/uL (1.5-8.5); NEUTROPHILS % 61.9 % (36.0-66.0); PLATELET COUNT, AUTOMATED 165 10^3/uL (150-450); RED BLOOD COUNT 4.77 10^6/uL (4.30-6.10); WHITE BLOOD COUNT 9.2 10^3/uL (4.0-10.0)
[2020-12-18 06:29] LABS: BLOOD UREA NITROGEN 17 MG/DL (7-18); CALCIUM LEVEL 8.1 MG/DL (8.8-10.2); CARBON DIOXIDE LEVEL 21 MEQ/L (21-32); CHLORIDE LEVEL 109 MEQ/L (98-107); GLOMERULAR FILTRATION RATE > 60.0 (>49); GLUCOSE, FASTING 104 MG/DL (70-100); POTASSIUM SERUM 4.3 MEQ/L (3.5-5.1); SODIUM LEVEL 137 MEQ/L (136-145)
[2020-12-18 08:00] VITALS: BP 148/78
[2020-12-18] MEDS: MOM 30ML SUSPENSION UDC PO SCH (08:35)
[2020-12-18] MEDS: DOCUSATE SODIUM 100MG CAPSULE PO SCH ×2 (08:36→20:14)
[2020-12-18] MEDS: ENTRESTO 24-26MG TABLET (SACUBITRIL/VALSARTAN) PO SCH ×2 (08:36→20:41)
[2020-12-18] MEDS: PANTOPRAZOLE 40MG TAB (PROTONIX) PO SCH (08:37)
[2020-12-18] MEDS: METOPROLOL SUCC (TopROL XL) 50MG **XL** TAB PO SCH ×2 (08:37→20:41)
[2020-12-18] MEDS: APIXABAN 5 MG TAB (ELIQUIS) PO SCH ×2 (08:37→20:14)
[2020-12-18] MEDS: PERCOCET 5MG/325MG TAB PO PRN (08:38)
[2020-12-18] MEDS ORDERED: FUROSEMIDE 40MG/4ML VIAL (J1940) IV ONE (08:55)
--- NOTE | 2020-12-18 09:23 | REP ---
INDICATION: pnemothx COMPARISON: 12/16/2020, 12/17/2020 TECHNIQUE: PA and lateral. FINDINGS: Right apical chest tube in stable position with small right apical pneumothorax unchanged. Perihilar and lower lobe airspace disease suggesting atelectasis and small infiltrates. No obvious effusion. Mediastinum and cardiac silhouette stable. Skeletal structures stable. IMPRESSION: No significant change from prior examination. Continued right apical pneumothorax and lower lobe opacities. <Electronically signed by Navin Kohler > 12/18/20 [id number]
[2020-12-18 09:50] VITALS: BP 126/72
--- NOTE | 2020-12-18 09:50 | IPN ---
PROGRESS NOTE DATE: 12/18/2020 SUBJECTIVE: Hilton seen in the PCU, admitted with a right pneumothorax, new onset atrial fibrillation. He was seen by Cardiology yesterday, Dr. Maria and I communicated about the case. An echocardiogram showed dilated cardiomyopathy, global hypokinesis, ejection fraction 30%, severe left atrial dilatation (only listed as 35 mm on the 2D measurements, but severe dilatation described in the conclusions). Very mild mitral regurgitation noted. Normal right sided pressures. Cardiology also discontinued aspirin and mentioned referral for electrical cardioversion or possibly cryo-balloon ablation of atrial fibrillation which the patient can discuss with his gunsmith apprentice who is at [facility]. Also mentioned switching from Losartan to Entresto based upon BMP measurement and consideration of SGLT-2 inhibitor such as Farxiga which indicated by Dr. Maria is unlikely to be covered by his insurance as he is not a diabetic and is not on hospital formulary anyway. OBJECTIVE: VITAL SIGNS: Afebrile, vital signs are stable. LUNGS: Clear bilaterally. HEART: Irregular rate and rhythm. ABDOMEN: Soft, nontender, no masses. EXTREMITIES: No peripheral edema. LABORATORY DATA: CBC unremarkable. Electrolytes unremarkable. BNP was only 1466. IMPRESSION: 1. Right pneumothorax. Chest tube per Dr. Klein. 2. Atrial fibrillation, rate is controlled. Anticoagulated with Eliquis. I see no above concerning outpatient plans. 3. COPD/emphysema, the importance of avoiding first or second-hand smoke exposure discussed at length. 4. Disposition: This is going to depend on chest tube management as far as date of discharge.
--- NOTE | 2020-12-18 14:15 | IPN ---
PROGRESS NOTE DATE: 12/18/2020 SUBJECTIVE: Mr. Padilla is doing well sitting up comfortably. He is breathing well. Dr. Maria saw him yesterday for his atrial fibrillation. He is electing to have the patient follow-up with his human resources project manager in [place] for consideration of cardioversion either chemically or electrically. Meanwhile, he is anticoagulated with some medication changes. OBJECTIVE: VITAL SIGNS: Show a T-max of 98.7 with a heart rate that ranges between 95 and 104 in atrial fibrillation with a respiratory rate of 18-20 without the use of accessory muscles who is 93% to 97% saturated on 2 liters nasal cannula. Blood pressure is ranging between 93/60 to 148/78. INTAKE AND OUTPUT: Over the past 24 hours has been recorded as 1560 in and 521 out for a positivity of 1000 mL. He has put out 46 mL from the chest tube. His weight today is 96.2 kg compared to 97.6 yesterday. RESPIRATORY: His lungs show equal breath sounds on either side with a percussion note that is full to the diaphragm. I do not hear any wheezes, rhonchi, or rales. CARDIAC: Shows atrial fibrillation with an irregular rate and rhythm. I cannot feel his PMI. S1 and S2 are normal. I do not appreciate murmurs, clicks, gallops, or rubs. ABDOMEN: Soft and nontender. Bowel sounds are positive. There is no hepatomegaly. No CVA tenderness. EXTREMITIES: Show no pretibial edema. No calf tenderness. No differential swelling of the upper extremities. SKIN: Warm, dry, and perfused without cyanosis or mottling, including that of the nail beds and knees. NECK: Supple. There is no jugular venous distention. No subcutaneous emphysema. Trachea is midline. MOUTH: Shows the mucous membranes to be pink and moist. Lips and commisures are without lesions and no thrush. EYES: Show His pupils equal and reactive. Extraocular muscles are intact. Sclerae nonicteric. NEUROLOGIC: Shows II through XII intact. Normal gross motor, gross sensation intact. Gait is not tested. PSYCHIATRIC: Shows him to be awake, alert, and oriented x3 with appropriate mood and affect and conversational. LABORATORY DATA: His white count today is 9.2 with a hemoglobin and hematocrit of 13.7 and 41.3 respectively. Platelet count is 165,000 and differential shows 61% neutrophils, 22% lymphocytes, and 10% monocytes. There are no immature forms and no toxic granulations. Electrolytes are essentially normal with a BUN and creatinine of 17 and 0.7, glucose of 104, and a calcium of 8.1. IMAGING DATA: His chest x-ray today shows his lungs fully expand to the chest wall. Costophrenic angles are sharp. There are no infiltrates. I do see some cephalization of vessels. Chest tube is in good place. IMPRESSION: 1. Acute pneumothorax right side. 2. Emphysema. 3. Bullous disease. 4. Hypertension. 5. Cardiomyopathy. 6. Atrial fibrillation, new onset. 7. Obesity. PLAN AND DISCUSSION: I will remove his chest tubes today as he has no air leak and he has been off suction for 24 hours. If all goes well, I will plan to discharge him tomorrow. We will continue his medications as suggested by Dr. Maria. I have asked him to call his human resources project manager in [place] to make an appointment soon after discharge to address his new onset atrial fibrillation. For the present time, he remains stable and safe on anticoagulation.
[2020-12-18 16:00] VITALS: BP 133/71
[2020-12-18 20:00] VITALS: BP 95/59
[2020-12-19] VITALS (11 sets, daily range): BP systolic 105–144; BP diastolic 60–99
[2020-12-19] MEDS: LEVALBUTEROL 1.25 MG/0.5 ML CONCENTRATE NEB NEB SCH ×4 (02:59→20:00)
[2020-12-19] MEDS: KETOROLAC 30 MG/ML 1ML VIAL IV SCH ×4 (04:19→21:02)
[2020-12-19 06:00] LABS: BASO # 0.1 10^3/uL (0.0-0.2); BASO % 0.5 % (0.0-1.0); EOS # 0.4 10^3/uL (0.0-0.5); EOS % 3.7 % (0.0-3.0); HEMATOCRIT 39.9 % (42.0-52.0); HEMOGLOBIN 13.2 g/dl (13.5-17.5); LYMPH # 1.8 10^3/uL (1.5-5.0); MEAN CORPUSCULAR HEMOGLOBIN 28.7 pg (27.0-33.0); MEAN CORPUSCULAR HGB CONC 33.1 g/dl (32.0-36.5); MEAN CORPUSCULAR VOLUME 86.7 fl (80.0-96.0); MONO % 10.4 % (2.0-8.0); NEUTROPHILS # 6.2 10^3/uL (1.5-8.5); PLATELET COUNT, AUTOMATED 168 10^3/uL (150-450); WHITE BLOOD COUNT 9.4 10^3/uL (4.0-10.0)
[2020-12-19 06:26] LABS: BLOOD UREA NITROGEN 20 MG/DL (7-18); CALCIUM LEVEL 7.8 MG/DL (8.8-10.2); CARBON DIOXIDE LEVEL 24 MEQ/L (21-32); CHLORIDE LEVEL 109 MEQ/L (98-107); GLOMERULAR FILTRATION RATE > 60.0 (>49); GLUCOSE, FASTING 94 MG/DL (70-100); SODIUM LEVEL 139 MEQ/L (136-145)
--- NOTE | 2020-12-19 08:10 | REP ---
INDICATION: pnemothx COMPARISON: 12/18/2020 TECHNIQUE: PA and lateral. FINDINGS: Chest tube has been removed and there is a large right hydropneumothorax with greater than 50% loss of lung volume. The mediastinum is stable and midline without significant contralateral mediastinal shift. The left hemithorax is relatively clear although subtle perihilar atelectasis cannot be excluded. IMPRESSION: Right chest tube removed and subsequent large right hydropneumothorax identified. <Electronically signed by Navin Kohler > 12/19/20 0806
[2020-12-19] MEDS ORDERED: MIDAZOLAM INJ 2MG/2ML VIAL (J2250 PER 1MG) As Ordered ONE (08:31)
[2020-12-19] MEDS ORDERED: flumazeniL 0.5 MG/5 ML VIAL As Ordered ONE (08:31)
[2020-12-19] MEDS ORDERED: LIDOCAINE 1% MDV 20ML VIAL As Ordered ONE (08:32)
[2020-12-19] MEDS: APIXABAN 5 MG TAB (ELIQUIS) PO SCH (08:47)
[2020-12-19] MEDS ORDERED: MIDAZOLAM INJ 2MG/2ML VIAL (J2250 PER 1MG) IV ONE ×2 (09:10→09:12)
[2020-12-19] MEDS ORDERED: LIDOCAINE 1% MDV 20ML VIAL SC ONE (09:12)
--- NOTE | 2020-12-19 09:53 | REP ---
INDICATION: Chest tube. COMPARISON: 12/19/2020, 7:39 a.m. TECHNIQUE: Single portable AP view of the chest was performed. FINDINGS: There is placement of a right chest tube superiorly. There is resolution of the right pneumothorax. Residual right perihilar atelectatic changes noted. The heart and mediastinum are unchanged. IMPRESSION: Placement of right chest tube superiorly. Resolution of right pneumothorax. <Electronically signed by Sascha Meek > 12/19/20 0949
[2020-12-19] MEDS: MOM 30ML SUSPENSION UDC PO SCH (10:11)
[2020-12-19] MEDS: PANTOPRAZOLE 40MG TAB (PROTONIX) PO SCH (10:12)
[2020-12-19] MEDS: METOPROLOL SUCC (TopROL XL) 50MG **XL** TAB PO SCH (10:12)
[2020-12-19] MEDS: ENTRESTO 24-26MG TABLET (SACUBITRIL/VALSARTAN) PO SCH ×2 (10:12→21:00)
[2020-12-19] MEDS: DOCUSATE SODIUM 100MG CAPSULE PO SCH ×2 (10:12→21:00)
--- NOTE | 2020-12-19 11:07 | IPN ---
PROGRESS NOTE DATE: 12/19/2020 SUBJECTIVE: Mr. Padilla was doing well until this morning, when he got up and started to become short of breath. He felt that it was an anxiety attack. He also noted some sweating. His saturations dropped into the mid 80s. He went down for a chest x-ray and he again dropped his lung and has a 70-80% pneumothorax. OBJECTIVE: VITAL SIGNS: Show a T-max of 98.8 with a heart rate that ranges between 80 and 118 in atrial fibrillation with a respiratory rate of 18-24 without the use of accessory muscles who is 86% to 98% saturated on 4 liters nasal cannula and whose blood pressure is ranging between 137 to 99 over 108/60. INTAKE AND OUTPUT: Over the past 24 hours has been recorded as 1200 in and 2330 out for a negativity of 1000 mL. His chest tube was removed yesterday and he put out 17.5 in urine output. RESPIRATORY: His lungs show markedly decreased breath sounds on the right side. Percussion note is hyperresonant on the right side. I hear no wheezes, rhonchi, or rales. CARDIAC: Without murmurs, clicks, gallops, or rubs. I cannot feel his PMI. S1 and S2 are normal. ABDOMEN: Soft and nontender. Bowel sounds are positive. There is no hepatomegaly. No CVA tenderness. EXTREMITIES: Show no pretibial edema. No calf tenderness. No differential swelling of the upper extremities. SKIN: Warm, dry, and perfused without cyanosis or mottling, including that of the nail beds and knees. NECK: Supple. There is no jugular venous distention. No subcutaneous emphysema. Trachea is midline. MOUTH: Shows the mucous membranes to be pink and moist. Lips and commisures are without lesions and no thrush. EYES: Show his pupils equal and reactive. Extraocular muscles are intact. Sclerae nonicteric. NEUROLOGIC: Shows II through XII intact. Normal gross motor, gross sensation intact. Gait is not tested. PSYCHIATRIC: Shows him to be awake, alert, and oriented x3 with appropriate mood and affect and conversational. LABORATORY DATA: His white count today is 9.4 with a hemoglobin and hematocrit of 13.2 and 39.9 respectively with a platelet count of 168,000. Differential shows 66% neutrophils, 19% lymphocytes, and 10% monocytes. There are no immature forms and no toxic granulations. His electrolytes are essentially normal with a BUN and creatinine of 20 and 0.70 with a glucose of 94 and a calcium of 7.8. IMAGING DATA: Chest x-ray as noted above shows an 70-80% pneumothorax. IMPRESSION: 1. Recurrent pneumothorax right side. 2. Emphysematous disease with upper lobe bullae. 3. Hypertension. 4. Cardiomyopathy. 5. Atrial fibrillation. 6. Obesity. PLAN AND DISCUSSION: I will immediately place another chest tube. We will have to now take him to the operating room to do a talc pleurodesis and wedge section. This will require me to stop his Eliquis. I am asking the medical service to take over his primary care and I will concentrate on his surgical care. I am hoping cardiology will get now more involved as he is going to be in the hospital for about a week.
--- NOTE | 2020-12-19 11:07 | RO ---
OPERATIVE NOTE DATE OF OPERATION: 12/19/2020 PREPROCEDRE DIAGNOSIS: Recurrent right pneumothorax. POSTPROCEDURE DIAGNOSIS: Recurrent right pneumothorax. PROCEDURE: Insertion of a superior-anterior chest tube. SURGEON: Dane Klein M.D. ENVIRONMENTAL ASSISTANT: None. ANESTHESIA: Moderate sedation 4 mg Versed. DESCRIPTION OF PROCEDURE: Under satisfactory moderate sedation achieved with 4 mg of Versed, the patient was prepped and draped in the usual sterile fashion. As the wound was less than 24 hours old, the prior chest tube wound was used. It was reopened and probed after infiltrating with 1% Lidocaine. A tunnel was created into the chest over the second rib in the first intercostal space. A #20 chest tube was placed without difficulty. The tube was secured to the chest wall with a #2 Tevdek suture and connected to the Pleur-Evac. There was an immediate gush of air both during creation of the tunnel and after connection of the Pleur-Evac. The patient tolerated the procedure well. A chest x-ray is pending. =
--- NOTE | 2020-12-19 11:07 | IPN ---
PROGRESS NOTE DATE: 12/19/2020 SUBJECTIVE: Hilton had recurrence of his large right hydropneumothorax after his chest tube was removed. Spoke with Dr. Klein. He is placing another chest tube and plans on the operating room (OR) once the Eliquis has dissipated. Patient denies any chest pain. He is short of breath. He is anxious. No hemoptysis. OBJECTIVE: Blood pressure 137/89, pulse 118, oxygen saturation 86% on 4 liters, improved after chest tube placement. GENERAL APPEARANCE: Alert, conversant, no distress. LUNGS: Decreased breath sounds on the right. HEART: Regular in rhythm. Rate around 100. ABDOMEN: Soft, nontender. No masses. EXTREMITIES: No peripheral edema. LABORATORY DATA: White count 9, [id number], platelets 168. Sodium 139, potassium 4.0, BUN 20, creatinine 0.7, glucose 94. IMPRESSION: 1. Right pneumothorax, recurrent after chest tube placement, with hypoxemia. Another chest tube has been placed. Plans for surgery. Will stabilize with pleurodesis. 2. Atrial fibrillation. Rate is controlled. Hold the Eliquis because of the pending surgery. Echocardiogram has been summarized previously. 3. Chronic obstructive pulmonary disease (COPD)/emphysema. Points of avoiding smoking discussed. 4. Dilated cardiomyopathy with congestive heart failure and reduced ejection fraction. He is compensated on examination.
[2020-12-19] MEDS: NORCO, ANEXSIA 5/325MG TABLET (HYDROcodone/ACETAMINOPHEN) PO PRN ×2 (13:23→16:35)
--- NOTE | 2020-12-19 16:46 | IPN ---
PROGRESS NOTE DATE: 12/19/2020 TIME: 0419 pm SUBJECTIVE: The patient reports that after the chest tube was removed, a while later, he had stood up and took a deep breath in and suddenly became acutely shortly of breath. He was found to have a right pleural effusion. Dr. Klein had to put a new chest tube back in. The patient feels that his breathing is much better with the new chest tube. Currently he does not have any exertional dyspnea with low levels of activity around the room. No orthopnea or PND. No leg or ankle swelling. He is not aware of any palpitations. No chest pain or chest discomfort. No dizziness or lightheadedness. OBJECTIVE: VITAL SIGNS: Weight 96.2 kg. Temperature 98.6, pulse 109, respiratory rate 18, blood pressure 116/71, O2 saturation 95% on O2 at 4 L/min via nasal cannula. CHEST: Right chest tube in situ. Crackles were present over the entire right lung field. The left lung field was clear. HEART: First heart sound is variable intensity. Normal S1. No S3. No murmurs. No pericardial friction rubs. ABDOMEN: Obese, soft, and nontender with normal bowel sounds. EXTREMITIES: No lower extremity edema. Pedal pulses are normal. NEUROLOGIC: Normal speech. Mood and affect were normal. Oriented to person, place, and time. LABORATORY DATA: From 12/19/2020, was reviewed: WBC 9.7, hemoglobin 13.2, hematocrit 39.9, platelets 168,000, sodium 139, potassium 4.0, chloride 109, CO2 of 24, BUN 20, creatinine 0.7, estimated GFR greater than 60, glucose 94. ASSESSMENT AND RECOMMENDATIONS: 1. Permanent atrial fibrillation. Recommend rate control approach. custodial he should remain on a direct oral anticoagulant, unless at some future time he ends up having a Watchman device placed. His direct oral anticoagulant is presently on hold while he awaits pleurodesis surgery this Thursday. To improve heart rate control, I will escalate the dosage of metoprolol succinate. 2. Dilated cardiomyopathy. Echocardiogram Doppler 12/17/2020, showed a mildly dilated left ventricle at end-diastole with severe global LV hypokinesis. Left ventricular ejection fraction (LVEF) 32%. Severe left atrial dilatation. Normal right ventricular (RV) size and systolic function. Very mild mitral regurgitation. No pericardial effusion. The patient is usually [place] [employer] (NYHA) functional class II. He appears compensated on examination. As noted above, I will increase the dosage of metoprolol succinate. Recommend Farxiga, which can be started as an outpatient. This was explained to the patient. The use of Entresto and metoprolol succinate was also explained to the patient. 3. Systolic and diastolic heart failure. As per dilated cardiomyopathy category above. 4. Preoperative cardiac clearance. Pleurodesis surgery under general anesthetic would generally be considered an intermediate risk procedure from the cardiac view point defined as 1-5% risk of nonfatal acute myocardial infarction, acute decompensated heart failure, or cardiac mortality. 5. The [place] [employer]/[place] [employer] clinic predictors are as follows - Major: none. Intermediate: compensated heart failure. Minor: Abnormal ECG, rhythm other than sinus (atrial fibrillation). Based on clinical pictures, his risks with surgery would be considered intermediate defined as 1% - 5% risk of acute myocardial infarction, decompensated heart failure, or cardiac mortality. At this point, I would consider him to be optimized to proceed to the operating room from the cardiac view point. The patient has cardiac clearance to proceed to the operating room.
[2020-12-19] MEDS: zolPIDEM TARTRATE 5 MG TAB PO PRN (21:00)
[2020-12-19] MEDS: METOPROLOL SUCC *XL* 25MG TAB (TopROL *XL*) PO SCH (21:00)
[2020-12-20] VITALS: BP 112/66
[2020-12-20] MEDS: NORCO, ANEXSIA 5/325MG TABLET (HYDROcodone/ACETAMINOPHEN) PO PRN (00:16)
[2020-12-20] MEDS: LEVALBUTEROL 1.25 MG/0.5 ML CONCENTRATE NEB NEB SCH ×4 (01:17→20:00)
[2020-12-20 04:00] VITALS: BP 127/78
[2020-12-20] MEDS: KETOROLAC 30 MG/ML 1ML VIAL IV SCH ×4 (04:09→20:17)
[2020-12-20 06:20] LABS: BASO # 0.1 10^3/uL (0.0-0.2); BASO % 0.6 % (0.0-1.0); EOS # 0.4 10^3/uL (0.0-0.5); EOS % 3.5 % (0.0-3.0); HEMATOCRIT 40.4 % (42.0-52.0); HEMOGLOBIN 13.3 g/dl (13.5-17.5); LYMPH % 20.1 % (24.0-44.0); MEAN CORPUSCULAR HEMOGLOBIN 28.7 pg (27.0-33.0); MEAN CORPUSCULAR HGB CONC 32.9 g/dl (32.0-36.5); MEAN CORPUSCULAR VOLUME 87.3 fl (80.0-96.0); MONO # 1.1 10^3/uL (0.0-0.8); MONO % 10.5 % (2.0-8.0); NEUTROPHILS # 6.5 10^3/uL (1.5-8.5); NEUTROPHILS % 64.8 % (36.0-66.0); PLATELET COUNT, AUTOMATED 172 10^3/uL (150-450); RED BLOOD COUNT 4.63 10^6/uL (4.30-6.10)
[2020-12-20 06:39] LABS: BLOOD UREA NITROGEN 17 MG/DL (7-18); CALCIUM LEVEL 8.2 MG/DL (8.8-10.2); CARBON DIOXIDE LEVEL 21 MEQ/L (21-32); CHLORIDE LEVEL 108 MEQ/L (98-107); CREATININE FOR GFR 0.62 MG/DL (0.70-1.30); GLOMERULAR FILTRATION RATE > 60.0 (>49); GLUCOSE, FASTING 94 MG/DL (70-100); POTASSIUM SERUM 3.9 MEQ/L (3.5-5.1); SODIUM LEVEL 139 MEQ/L (136-145)
--- NOTE | 2020-12-20 08:00 | REP ---
INDICATION: pnemothx. COMPARISON: Comparison chest x-ray December 19, 2020. TECHNIQUE: Two views.. FINDINGS: The right apical chest tube is been reposition. There is again noted to be some extra thoracic soft tissue emphysema in the extra thoracic soft tissues on the right. This is a little more extensive. There is no visible pneumothorax or hydrothorax. No definite infiltrate. EKG electrodes are seen. Borderline heart size. IMPRESSION: Right chest tube in place. No visible pneumothorax.. <Electronically signed by Sourav Henry > 12/20/20 0753
[2020-12-20 08:51] VITALS: BP 110/62
[2020-12-20] MEDS: DOCUSATE SODIUM 100MG CAPSULE PO SCH ×2 (08:59→20:16)
[2020-12-20] MEDS: MOM 30ML SUSPENSION UDC PO SCH (09:00)
[2020-12-20] MEDS: ENTRESTO 24-26MG TABLET (SACUBITRIL/VALSARTAN) PO SCH ×2 (09:00→20:16)
[2020-12-20] MEDS: PANTOPRAZOLE 40MG TAB (PROTONIX) PO SCH (09:00)
[2020-12-20] MEDS: METOPROLOL SUCC *XL* 25MG TAB (TopROL *XL*) PO SCH ×2 (09:00→20:17)
--- NOTE | 2020-12-20 10:46 | IPN ---
PROGRESS NOTE DATE: 12/20/2020 SUBJECTIVE: Hilton went for a walk with the nurses and feels much better after a good night's sleep. He is having a pleurodesis tomorrow. Case was discussed with Dr. Klein yesterday and today. Patient was seen by Dr. Maria yesterday for preoperative evaluation. Appreciate his input as well. PHYSICAL EXAMINATION: VITAL SIGNS: Stable. Afebrile. Saturation 97% on room air. GENERAL: He is alert, conversant. No distress. Good spirits. LUNGS: Clear bilaterally. Good air movement. HEART: Regular rate and rhythm. ABDOMEN: Soft, nontender. No masses. EXTREMITIES: No peripheral edema. LABORATORY DATA: CBC unremarkable. Chemistry profile unremarkable. Potassium 3.9. IMPRESSION: 1. Recurrent right pneumothorax. Going for talc pleurodesis and wedge resection tomorrow with Dr. Klein. Eliquis has been on hold since yesterday. 2. Atrial fibrillation. Rate is controlled. Eliquis is on hold. Cardiology has seen him preoperatively. 3. Chronic obstructive pulmonary disease (COPD). He is on nebulized bronchodilator. He is not short of breath. 4. Dilated cardiomyopathy with congestive heart failure and reduced ejection fraction. Compensated on exam. Echocardiogram was reviewed.
[2020-12-20 11:48] VITALS: BP 110/70
--- NOTE | 2020-12-20 12:33 | IPN ---
PROGRESS NOTE DATE: 12/20/2020 SUBJECTIVE: Mr. Padilla is feeling fairly well this morning. In fact, he got up at 4 o'clock in the morning and walked around with suction on his chest tube. His pain is being well-controlled at the chest tube insertion site. OBJECTIVE: VITAL SIGNS: Show a T-max of 97.5 with a heart rate that ranges between 77 and 100 with a respiratory rate of 18-22 without the use of accessory muscles who is 97% to 98% saturated on room air and whose blood pressure is ranging between 112/66 to 127/78. INTAKE AND OUTPUT: Over the past 24 hours has been recorded as 800 in and 775 out for a near equality. He has put 101 mL out the chest tube and there is no air leak. Weight today is 93.9 kg compared to 96.2 kg yesterday. RESPIRATORY: His lungs show equal breath sounds on either side. Percussion notes are full to the diaphragm with equal resonance. I hear no wheezes, rhonchi, or rales. CARDIAC: Without murmurs, clicks, gallops, or rubs. I cannot feel his PMI. S1 and S2 are normal. ABDOMEN: Soft and nontender. Bowel sounds are positive. There is no hepatomegaly. No CVA tenderness. EXTREMITIES: Show no pretibial edema. No calf tenderness. No differential swelling of the upper extremities. SKIN: Warm, dry, and perfused without cyanosis or mottling, including that of the nail beds and knees. NECK: Supple. There is no jugular venous distention. No subcutaneous emphysema. Trachea is midline. MOUTH: Shows the mucous membranes to be pink and moist. Lips and commisures are without lesions and no thrush. EYES: Show his pupils equal and reactive. Extraocular muscles are intact. Sclerae nonicteric. NEUROLOGIC: Shows II through XII intact. Normal gross motor, gross sensation intact. Gait is not tested. PSYCHIATRIC: Shows him to be awake, alert, and oriented x3 with appropriate mood and affect and conversational. LABORATORY DATA: His white count today is 10.0 with hemoglobin and hematocrit of 13.3 and 40.4 respectively. Platelet count is 172,000 and stable with a differential that shows 64% neutrophils, 20% lymphocytes, and 10% monocytes. There are no immature forms and no toxic granulations. His electrolytes are essentially normal with a BUN and creatinine of 17 and 0.62 with a glucose of 94 and a calcium of 8.2. IMAGING DATA: His chest x-ray is pending. IMPRESSION: 1. Recurrent pneumothorax right side. 2. Emphysematous disease with upper lobe bullae. 3. Hypertension. 4. Cardiomyopathy. 5. Atrial fibrillation. 6. Obesity. PLAN AND DISCUSSION: We will take him to the operating room tomorrow for a wedge resection and talc pleurodesis. There will be about a three hour hiatus between his last dose of anticoagulant and the required 72 hours needed before an epidural can be placed. This will therefore be placed postoperatively while the patient is still in the recovery room. We will maintain his pain control with IV narcotics. He has been off his Eliquis now since 814 on Thursday.
[2020-12-20 16:44] VITALS: BP 124/84
[2020-12-20 20:00] VITALS: BP 125/80
[2020-12-20] MEDS: zolPIDEM TARTRATE 5 MG TAB PO PRN (21:45)
[2020-12-21] VITALS: BP 115/63
[2020-12-21 04:00] VITALS: BP 122/81
[2020-12-21] MEDS: LEVALBUTEROL 1.25 MG/0.5 ML CONCENTRATE NEB NEB SCH ×3 (04:37→14:00)
[2020-12-21] MEDS: KETOROLAC 30 MG/ML 1ML VIAL IV SCH ×2 (04:52→09:00)
[2020-12-21 05:05] LABS: BASO % 0.4 % (0.0-1.0); EOS # 0.4 10^3/uL (0.0-0.5); EOS % 3.5 % (0.0-3.0); HEMATOCRIT 41.1 % (42.0-52.0); HEMOGLOBIN 13.8 g/dl (13.5-17.5); LYMPH # 1.9 10^3/uL (1.5-5.0); LYMPH % 18.5 % (24.0-44.0); MEAN CORPUSCULAR HEMOGLOBIN 28.8 pg (27.0-33.0); MEAN CORPUSCULAR HGB CONC 33.6 g/dl (32.0-36.5); MEAN CORPUSCULAR VOLUME 85.8 fl (80.0-96.0); MONO # 1.2 10^3/uL (0.0-0.8); MONO % 11.8 % (2.0-8.0); NEUTROPHILS # 6.7 10^3/uL (1.5-8.5); NEUTROPHILS % 65.3 % (36.0-66.0); PLATELET COUNT, AUTOMATED 173 10^3/uL (150-450); RED BLOOD COUNT 4.79 10^6/uL (4.30-6.10); WHITE BLOOD COUNT 10.2 10^3/uL (4.0-10.0)
[2020-12-21 05:29] LABS: BLOOD UREA NITROGEN 15 MG/DL (7-18); CALCIUM LEVEL 8.1 MG/DL (8.8-10.2); CARBON DIOXIDE LEVEL 23 MEQ/L (21-32); CHLORIDE LEVEL 108 MEQ/L (98-107); CREATININE FOR GFR 0.67 MG/DL (0.70-1.30); GLOMERULAR FILTRATION RATE > 60.0 (>49); GLUCOSE, FASTING 100 MG/DL (70-100); POTASSIUM SERUM 4.1 MEQ/L (3.5-5.1); SODIUM LEVEL 137 MEQ/L (136-145)
[2020-12-21] MEDS ORDERED: ceFAZolin SOD 2 GM in IV 1 EA IV ONE (06:00)
[2020-12-21] MEDS ORDERED: MUPIROCIN 2% OINT 22 GM TUBE TOP ONE (06:00)
[2020-12-21 07:30] VITALS: BP 112/76
--- NOTE | 2020-12-21 08:16 | REP ---
INDICATION: pnemothx COMPARISON: 12/20/2020 TECHNIQUE: PA and lateral. FINDINGS: Chest tube overlies the right apex. Small right apical pneumothorax is increased from prior examination. Right-sided subcutaneous emphysema again noted along with subtle bilateral perihilar and lower lobe airspace disease essentially unchanged. No obvious effusion. Cardiac silhouette is within normal limits and stable. Skeletal structures stable. IMPRESSION: 1. Small right apical pneumothorax increased from prior examination. 2. Perihilar and lower lobe opacities unchanged. <Electronically signed by Navin Kohler > 12/21/20 0812
[2020-12-21] MEDS: MOM 30ML SUSPENSION UDC PO SCH (09:00)
[2020-12-21] MEDS: METOPROLOL SUCC *XL* 25MG TAB (TopROL *XL*) PO SCH ×2 (10:05→21:00)
[2020-12-21] MEDS: ENTRESTO 24-26MG TABLET (SACUBITRIL/VALSARTAN) PO SCH ×2 (10:05→21:00)
[2020-12-21] MEDS: DOCUSATE SODIUM 100MG CAPSULE PO SCH ×2 (10:06→21:00)
[2020-12-21] MEDS: PANTOPRAZOLE 40MG TAB (PROTONIX) PO SCH (10:06)
[2020-12-21] MEDS ORDERED: fentaNYL 250 MCG/5 ML INJECTION (J3010) As Ordered ONE (10:31)
[2020-12-21] MEDS ORDERED: MIDAZOLAM INJ 2MG/2ML VIAL (J2250 PER 1MG) As Ordered ONE ×2 (10:31→20:19)
[2020-12-21] MEDS ORDERED: ROCURONIUM BROMIDE 50 MG/5 ML VIAL As Ordered ONE ×2 (10:31→13:56)
[2020-12-21] MEDS ORDERED: propofoL 200 MG/20 ML VIAL As Ordered ONE (10:31)
[2020-12-21] MEDS ORDERED: LIDOCAINE 2% 100MG/5ML SDV (FOR ANES.) As Ordered ONE (10:31)
--- NOTE | 2020-12-21 10:50 | IPN ---
PROGRESS NOTE DATE: 12/21/2020 SUBJECTIVE: Hilton was seen, he was walking the halls with anticipation of the surgery, his anxiety looks like it is under control. OBJECTIVE: LUNGS: Decreased breath sounds. Chest tube on right side. HEART: Irregular rate and abdomen. ABDOMEN: Soft, nontender. EXTREMITIES: No peripheral edema. LABORATORY DATA: Preop labs are unremarkable. IMPRESSION: He is ready for surgery today, resume anticoagulant when okay by surgery.
[2020-12-21] MEDS ORDERED: LIDOCAINE 1% MDV 20ML VIAL XX ONE (11:15)
[2020-12-21 11:30] VITALS: BP 138/92
[2020-12-21] MEDS ORDERED: BUPIVACAINE HCL 0.25% 30ML VIAL As Ordered ONE (11:32)
[2020-12-21] MEDS ORDERED: STERILE TALC POWDER 3GM VIAL As Ordered ONE ×2 (11:32→11:33)
[2020-12-21] MEDS ORDERED: MUPIROCIN 2% OINT 22 GM TUBE As Ordered ONE (11:32)
[2020-12-21] MEDS ORDERED: CETACAINE SPRAY 5GM As Ordered ONE (11:32)
[2020-12-21] MEDS ORDERED: BUPIVACAINE HCL 0.5% 30 ML VIAL As Ordered ONE (11:32)
[2020-12-21] MEDS ORDERED: TALCAIR POWDER BLOWER (CAN ONLY BE USED WITH 3GM TALC VIAL) XX ONE ×2 (11:32→11:33)
[2020-12-21] MEDS ORDERED: BUPIVACAINE LIPOSOME/PF 1.3% 20ML VIAL (13.3MG/ML)(EXPAREL)(C9290 PER1MG) As Ordered ONE (11:33)
[2020-12-21] MEDS ORDERED: ETOMIDATE INJ 20MG/10ML VIAL As Ordered ONE (12:20)
[2020-12-21] MEDS ORDERED: ceFAZolin 2 GM/D5W 50 ML IV BAG (J0690 PER 500MG) As Ordered ONE (13:08)
[2020-12-21] MEDS ORDERED: ACETAMINOPHEN 1000MG 100ML IV BTL (OFIRMEV) (J0131 PER 10MG) As Ordered ONE (14:19)
[2020-12-21] MEDS ORDERED: dexameTHASONE 4 MG/ML 1ML VIAL (J1100 PER 1MG) As Ordered ONE (14:19)
[2020-12-21] MEDS ORDERED: ONDANSETRON 4MG/2ML VIAL As Ordered ONE (14:19)
[2020-12-21] MEDS ORDERED: KETOROLAC 60MG 2ML VIAL As Ordered ONE (14:19)
[2020-12-21] MEDS ORDERED: SUGAMMADEX SODIUM 500 MG/5 ML VIAL (BRIDION) As Ordered ONE (14:20)
[2020-12-21] MEDS ORDERED: KETOROLAC 30 MG/ML 1ML VIAL IV PRN ×2 (14:20→21:00)
[2020-12-21] MEDS ORDERED: HYDROmorphone HCL 2 MG/ML 1ML VIAL (J1170) As Ordered ONE (14:29)
[2020-12-21] MEDS ORDERED: KCL 20MEQ IN D5/NS 1000ML 1,000 ML IV SCH (14:40)
[2020-12-21] MEDS: PERCOCET 5MG/325MG TAB PO PRN (15:12)
--- NOTE | 2020-12-21 15:13 | REP ---
INDICATION: post op. COMPARISON: 12/21/2020 7:57 a.m. TECHNIQUE: Single portable AP view of the chest was performed. FINDINGS: There are 2 chest tubes on the right. Right apical pneumothorax has decreased in size. Bilateral parenchymal opacities are unchanged. The heart and mediastinum are unchanged. There is mild air in the right chest wall soft tissues. IMPRESSION: There are 2 chest tubes now visualized overlying the right hemithorax. The previously noted right apical pneumothorax has decreased in size. <Electronically signed by Sascha Meek > 12/21/20 [id number]
[2020-12-21 15:19] LABS: ABG BASE EXCESS -5.8 (-2.0-2.0); ABG HCO3 18.2 MEQ/L (22.0-26.0); ABG O2 SATURATION 95.3 % (95.0-99.0); ABG PARTIAL PRESSURE CO2 31.5 mmHg (35.0-45.0); ABG PARTIAL PRESSURE O2 81.8 mmHg (75.0-100.0); ABG STANDARD HCO3 19.7 MEQ/L (22.0-26.0); ABG TOTAL CO2 19.1 MEQ/L (23.0-31.0); ABG pH (ARTERIAL) 7.379 UNITS (7.350-7.450)
[2020-12-21 15:25] LABS: BASO # 0.1 10^3/uL (0.0-0.2); BASO % 0.5 % (0.0-1.0); EOS # 0.5 10^3/uL (0.0-0.5); EOS % 4.2 % (0.0-3.0); HEMATOCRIT 40.8 % (42.0-52.0); HEMOGLOBIN 13.6 g/dl (13.5-17.5); LYMPH # 2.2 10^3/uL (1.5-5.0); LYMPH % 20.2 % (24.0-44.0); MEAN CORPUSCULAR HEMOGLOBIN 28.9 pg (27.0-33.0); MEAN CORPUSCULAR HGB CONC 33.3 g/dl (32.0-36.5); MEAN CORPUSCULAR VOLUME 86.6 fl (80.0-96.0); MONO # 1.2 10^3/uL (0.0-0.8); MONO % 11.1 % (2.0-8.0); NEUTROPHILS # 6.8 10^3/uL (1.5-8.5); NEUTROPHILS % 63.6 % (36.0-66.0); PLATELET COUNT, AUTOMATED 200 10^3/uL (150-450); RED BLOOD COUNT 4.71 10^6/uL (4.30-6.10); WHITE BLOOD COUNT 10.7 10^3/uL (4.0-10.0)
[2020-12-21] MEDS ORDERED: NS 500 ML IV ONE (15:55)
[2020-12-21 15:59] LABS: BLOOD UREA NITROGEN 17 MG/DL (7-18); CALCIUM LEVEL 7.5 MG/DL (8.8-10.2); CARBON DIOXIDE LEVEL 21 MEQ/L (21-32); CHLORIDE LEVEL 107 MEQ/L (98-107); CREATININE FOR GFR 0.89 MG/DL (0.70-1.30); GLOMERULAR FILTRATION RATE > 60.0 (>49); GLUCOSE, FASTING 120 MG/DL (70-100); POTASSIUM SERUM 4.9 MEQ/L (3.5-5.1); SODIUM LEVEL 136 MEQ/L (136-145)
[2020-12-21] MEDS ORDERED: ONDANSETRON 4MG/2ML VIAL IV PRN ×3 (17:45→21:30)
[2020-12-21] MEDS ORDERED: LR 1,000 ML IV SCH ×2 (17:45→21:00)
[2020-12-21] MEDS ORDERED: METOCLOPRAMIDE INJ 10MG/2ML VIAL (J2765 PER 1) IV PRN ×3 (17:45→21:30)
[2020-12-21] MEDS ORDERED: PERCOCET 5MG/325MG TAB PO PRN ×2 (17:45→21:00)
[2020-12-21] MEDS ORDERED: fentaNYL 100 MCG/2 ML INJECTION (J3010) IV PRN ×2 (17:45→21:00)
[2020-12-21] MEDS ORDERED: fentaNYL 100 MCG/2 ML INJECTION (J3010) As Ordered ONE (20:19)
[2020-12-21] MEDS ORDERED: fentaNYL 100 MCG/2 ML INJECTION (J3010) IV SCH (20:25)
[2020-12-21] MEDS ORDERED: MIDAZOLAM INJ 2MG/2ML VIAL (J2250 PER 1MG) IV SCH (20:25)
[2020-12-21] MEDS ORDERED: PHENYLephrine 500MCG 5ML (100MCG/ML) SYRINGE IV PRN (21:00)
[2020-12-21] MEDS ORDERED: PHENYLEPHRINE HCL INJ 10 MG in D5W 100 ML IV SCH (21:00)
[2020-12-21] MEDS: HEPARIN SOD (PORCINE) 5000UNITS/ML 1ML VIAL/SYRINGE SC SCH (21:00)
--- NOTE | 2020-12-21 21:25 | RO ---
OPERATIVE NOTE DATE OF OPERATION: 12/21/2020 PREOPERATIVE DIAGNOSIS: Recurrent pneumothorax, right side, emphysematous bullous disease. POSTOPERATIVE DIAGNOSIS: Recurrent pneumothorax, right side, emphysematous bullous disease. PROCEDURE: Multiple wedge resections with VATS techniques, talc pleurodesis and bronchoscopy. SURGEON: Dane Klein MD MEDICAL FIELD REPRESENTATIVE: ANESTHESIA: FINDINGS: Bronchoscopy revealed a normal branching tracheobronchial tree. There were no endobronchial lesions. He was fairly dry. Thoracoscopy revealed quite blackened lungs with lots of emphysematous disease, particularly the cupula with clearly a ruptured bleb in the cupula of the lung. This was resected with a stapler. The top was uniformly insufflated over the entire pleural surface. PROCEDURE: Under satisfactory general anesthesia, a single lumen tube endotracheal intubation, the bronchoscope was passed into the tracheobronchial tree. The branching anatomy was normal and there were no endobronchial lesions. There were a few secretions. The patient then underwent double lumen intubation and again was checked with the bronchoscope for placement. The patient was then turned into the left lateral decubitus position and was sterilely prepped and draped in the usual sterile fashion. A VATS incision was made over the approximate seventh rib into the sixth intercostal space. The thoracoscope was inserted and the anatomy identified. Two more ports were placed and the cupula was seized with forceps to expose the ruptured bulla. Through a 12 mm port, an [place] MARIE stapler was then inserted with 4.8 yuliana and two sections of lung were resected containing blebs including the ruptured bleb. The pleural surfaces were then uniformly covered and insufflated with talc powder. Two chest tubes were placed, both #24s, one curved, one straight, posteriorly, anteriorly respectively. These were secured to the chest wall with 0 silk suture. Both anterior chest tubes sites were used for the chest tubes. The lung was reinflated after placing an 8 level rib block with Exparel and Marcaine mixture. The chest tube sites were also infiltrated with Exparel and Marcaine. The remaining 12 mm port wound was closed with running 0 Vicryl suture for the extrathoracic muscles, running 3-0 Vicryl suture for the subcutaneous tissue, running 4-0 Monocryl subcuticular suture for the skin. Chest tubes were connected to the Pleur-Evac and placed on suction. The patient tolerated the procedure well and left the operating room in satisfactory condition to the recovery room.
[2020-12-21] MEDS ORDERED: diphenhydrAMINE 50MG/ML VIAL (J1200) IV PRN (21:30)
[2020-12-21] MEDS ORDERED: EPIDURAL/PCA KEYS XX PRN (21:30)
[2020-12-21] MEDS ORDERED: NALOXONE INJ 0.4MG/1ML VIAL (J2310 PER 1MG) IV PRN (21:30)
[2020-12-21] MEDS ORDERED: WALLBOXKEY XX PRN (21:30)
[2020-12-21] MEDS: FENTANYL/BUPIVACAINE/NACL BAG 250 ML EPIDURAL SCH (22:08)
[2020-12-21 22:45] VITALS: BP 99/68
[2020-12-21 23:00] VITALS: BP 101/74
[2020-12-22] VITALS (12 sets, daily range): BP systolic 79–118; BP diastolic 50–92
[2020-12-22 05:43] LABS: BASO % 0.1 % (0.0-1.0); EOS % 0.2 % (0.0-3.0); HEMATOCRIT 38.9 % (42.0-52.0); HEMOGLOBIN 12.9 g/dl (13.5-17.5); LYMPH # 1.3 10^3/uL (1.5-5.0); LYMPH % 10.6 % (24.0-44.0); MEAN CORPUSCULAR HEMOGLOBIN 28.9 pg (27.0-33.0); MEAN CORPUSCULAR HGB CONC 33.2 g/dl (32.0-36.5); MONO # 1.2 10^3/uL (0.0-0.8); MONO % 9.9 % (2.0-8.0); NEUTROPHILS # 9.3 10^3/uL (1.5-8.5); NEUTROPHILS % 78.8 % (36.0-66.0); PLATELET COUNT, AUTOMATED 189 10^3/uL (150-450); RED BLOOD COUNT 4.47 10^6/uL (4.30-6.10); WHITE BLOOD COUNT 11.8 10^3/uL (4.0-10.0)
[2020-12-22 06:07] LABS: BLOOD UREA NITROGEN 22 MG/DL (7-18); CALCIUM LEVEL 7.9 MG/DL (8.8-10.2); CARBON DIOXIDE LEVEL 18 MEQ/L (21-32); CHLORIDE LEVEL 107 MEQ/L (98-107); CREATININE FOR GFR 0.79 MG/DL (0.70-1.30); GLOMERULAR FILTRATION RATE > 60.0 (>49); GLUCOSE, FASTING 126 MG/DL (70-100); POTASSIUM SERUM 4.7 MEQ/L (3.5-5.1); SODIUM LEVEL 135 MEQ/L (136-145)
[2020-12-22 06:32] LABS: ABG pH (ARTERIAL) 7.466 UNITS (7.350-7.450)
[2020-12-22 06:33] LABS: ABG BASE EXCESS -4.7 (-2.0-2.0); ABG HCO3 17.3 MEQ/L (22.0-26.0); ABG O2 SATURATION 97.2 % (95.0-99.0); ABG PARTIAL PRESSURE CO2 24.5 mmHg (35.0-45.0); ABG PARTIAL PRESSURE O2 88.9 mmHg (75.0-100.0); ABG STANDARD HCO3 20.6 MEQ/L (22.0-26.0)
[2020-12-22] MEDS: LEVALBUTEROL 1.25 MG/0.5 ML CONCENTRATE NEB NEB SCH ×3 (07:57→20:00)
--- NOTE | 2020-12-22 08:26 | REP ---
INDICATION: pnemothx COMPARISON: 12/21/2020 TECHNIQUE: PA and lateral. FINDINGS: Two right-sided chest tubes are in stable position and small residual right apical pneumothorax along with small amount of subcutaneous emphysema again noted. Mediastinum and cardiac silhouette are stable. Scattered chronic bilateral pleuroparenchymal changes are appreciated with subtle superimposed airspace disease (right greater than left). Findings essentially unchanged. IMPRESSION: No significant change from prior examination. Small right apical pneumothorax and subtle bilateral scattered airspace disease. <Electronically signed by Navin Kohler > 12/22/20 [id number]
[2020-12-22] MEDS: MOM 30ML SUSPENSION UDC PO SCH (09:00)
[2020-12-22] MEDS: PERCOCET 5MG/325MG TAB PO PRN (09:09)
[2020-12-22] MEDS: DOCUSATE SODIUM 100MG CAPSULE PO SCH ×2 (09:22→21:58)
[2020-12-22] MEDS: PANTOPRAZOLE 40MG TAB (PROTONIX) PO SCH (09:22)
[2020-12-22] MEDS: HEPARIN SOD (PORCINE) 5000UNITS/ML 1ML VIAL/SYRINGE SC SCH ×2 (09:22→21:58)
--- NOTE | 2020-12-22 11:30 | IPN ---
PROGRESS NOTE DATE: 12/22/2020 Hilton is seen in intensive care unit (ICU) status post pleurodesis and multiple wedge resections, talc pleurodesis, and bronchoscopy. Thoracoscopy showed blackened lungs with lots of emphysema. A clearly ruptured bleb was seen. He had an epidural placed postoperatively. He is not having any significant pain problems. He is ambulating without difficulty. PHYSICAL EXAMINATION: Afebrile. Blood pressure (BP) is 106/92, 98% oxygen saturation, Alert, conversant. No distress. Lungs clear. Heart regular rate and rhythm. Abdomen soft, nontender. No peripheral edema. LABORATORY DATA: CBC and chemistry profile are stable. IMPRESSION: 1. Spontaneous pneumothorax status post wedge resection and talc pleurodesis by Dr. Klein. Chest tube managed per Dr. Klein 2. Atrial fibrillation. Is rate controlled. No anticoagulant while the epidural catheter is in place. 3. Chronic obstructive pulmonary disease (COPD), Blackened, emphysematous lungs seen on thoracoscopy. He has already been counseling about smoking cessation. I spoke with his , Jojo, 2 days ago, and I will call her again today.
[2020-12-22] MEDS: ENTRESTO 24-26MG TABLET (SACUBITRIL/VALSARTAN) PO SCH ×2 (11:32→21:58)
[2020-12-22] MEDS: METOPROLOL SUCC *XL* 25MG TAB (TopROL *XL*) PO SCH ×2 (11:33→21:00)
--- NOTE | 2020-12-22 12:33 | IPN ---
PROGRESS NOTE DATE: 12/22/2020 This is now the first postoperative day for Mr. Padilla. He has a one-bubble air leak with forceful cough. His pain is being well controlled with the epidural being placed yesterday evening. He is coughing and moving around and walked extra today. His vital signs show a maximum temperature of 98.3 with a heart rate that ranges between 87-111 in atrial fibrillation with a respiratory rate of 17-22 without the use of accessory muscles, who is 95%-99% saturated on 2 liters nasal cannula, and whose blood pressure is ranging between 109/60 to 79/50. His intake and output for the past 24 hours have been recorded as 1100 in and 446 out for a positivity of 650 mL. He has put out 241 mL from the chest tube. There is that one-bubble air leak. He weighs 95.7 kg today compared to 98.9 kg yesterday. PHYSICAL EXAMINATION: He has equal breath sounds on either side. Percussion note is full to the diaphragm. There are some scattered rhonchi on the right side. Cardiac exam does not show murmurs, clicks, gallops, or rubs. He has an irregular rate and rhythm. I cannot feel his point of maximal impulse (PMI). S1 and S2 are normal. Abdomen is soft and nontender. Bowel sounds are positive. There is no hepatomegaly. No costovertebral angle (CVA) tenderness. He is having flatus. Extremities show no pretibial edema, no calf tenderness, no differential swelling of the upper extremities. Skin is warm, dry, and perfused without cyanosis or mottling, including that of the nailbeds and knees. Neck is supple. There is no jugular venous distention. No subcutaneous emphysema. Trachea is midline. Mouth shows the mucous membranes to be pink and moist. Lips and commissures without lesions. No thrush. Eyes show his pupils to be equal and reactive. Extraocular motion intact. Sclerae anicteric. Neurologic shows II-XII intact. Normal gross motor, gross sensation intact. Gait is not tested. Psychiatric shows him to be awake, alert, and oriented times three with appropriate mood and affect and conversational. His white count today is 11.8 with a hemoglobin and hematocrit of 12.9 and 38.9, respectively. Platelet count is 189 and stable, and differential shows 78% neutrophils, 10% lymphocytes, and 9% monocytes. There are no immature forms or toxic granulations. Blood gases today show a pH of 7.46, a pCO2 of 24, and a pO2 of 88 on the above oxygen. Base excess is -4.7. His chemistries show essentially normal electrolytes but with a decreased total CO2 of 18. Calcium is 7.9 with a glucose of 126. BUN and creatinine are 22 and 0.79. His chest x-ray today shows his lung fully expanded to the chest wall. I see no infiltrates. Costophrenic angles are sharp. He has some residual atelectasis on the right side in the lower aspect of the hemithorax. The anterior chest tube looks to be pulled more inferiorly. Posterior chest tube is in good position. IMPRESSION: 1. Postoperative day #1 status post talc pleurodesis and wedge resection. 2. New-onset atrial fibrillation. 3. Hypertension. 4. Emphysematous bullous disease. 5. Cardiomyopathy. 6. Obesity. PLAN AND DISCUSSION: I will transfer him to the progressive care unit (PCU) today. We will keep his chest tubes on suction. He looks to have a compensated metabolic acidosis, probably from hypertension secondary to his epidural. I will not treat that at this point in time.
[2020-12-22 14:39] LABS: MAGNESIUM LEVEL 2.5 MG/DL (1.8-2.4)
[2020-12-22] MEDS: FENTANYL/BUPIVACAINE/NACL BAG 250 ML EPIDURAL SCH (23:22)
[2020-12-23] VITALS (7 sets, daily range): BP systolic 87–120; BP diastolic 55–88
[2020-12-23] MEDS: LEVALBUTEROL 1.25 MG/0.5 ML CONCENTRATE NEB NEB SCH ×4 (01:23→19:12)
[2020-12-23 06:06] LABS: BASO # 0.1 10^3/uL (0.0-0.2); BASO % 0.4 % (0.0-1.0); EOS # 0.5 10^3/uL (0.0-0.5); EOS % 4.1 % (0.0-3.0); HEMATOCRIT 40.3 % (42.0-52.0); LYMPH # 2.7 10^3/uL (1.5-5.0); LYMPH % 21.5 % (24.0-44.0); MEAN CORPUSCULAR HEMOGLOBIN 28.2 pg (27.0-33.0); MEAN CORPUSCULAR HGB CONC 32.3 g/dl (32.0-36.5); MEAN CORPUSCULAR VOLUME 87.4 fl (80.0-96.0); MONO % 12.2 % (2.0-8.0); NEUTROPHILS # 7.6 10^3/uL (1.5-8.5); NEUTROPHILS % 61.3 % (36.0-66.0); PLATELET COUNT, AUTOMATED 193 10^3/uL (150-450); RED BLOOD COUNT 4.61 10^6/uL (4.30-6.10)
[2020-12-23 06:25] LABS: BLOOD UREA NITROGEN 17 MG/DL (7-18); CALCIUM LEVEL 8.1 MG/DL (8.8-10.2); CARBON DIOXIDE LEVEL 20 MEQ/L (21-32); CHLORIDE LEVEL 109 MEQ/L (98-107); CREATININE FOR GFR 0.77 MG/DL (0.70-1.30); GLOMERULAR FILTRATION RATE > 60.0 (>49); GLUCOSE, FASTING 100 MG/DL (70-100); POTASSIUM SERUM 4.1 MEQ/L (3.5-5.1); SODIUM LEVEL 140 MEQ/L (136-145)
[2020-12-23 06:45] LABS: WHITE BLOOD COUNT 12.4 10^3/uL (4.0-10.0)
[2020-12-23 06:46] LABS: MONO # 1.5 10^3/uL (0.0-0.8)
[2020-12-23] MEDS: DOCUSATE SODIUM 100MG CAPSULE PO SCH ×2 (08:09→20:04)
[2020-12-23] MEDS: MOM 30ML SUSPENSION UDC PO SCH (08:09)
[2020-12-23] MEDS: PANTOPRAZOLE 40MG TAB (PROTONIX) PO SCH (08:09)
[2020-12-23] MEDS: HEPARIN SOD (PORCINE) 5000UNITS/ML 1ML VIAL/SYRINGE SC SCH ×2 (08:10→20:05)
--- NOTE | 2020-12-23 08:52 | REP ---
INDICATION: pnemothx COMPARISON: 12/22/2020 TECHNIQUE: PA and lateral. FINDINGS: Right-sided chest tubes are in stable position. There appears to be slight decrease in the right apical pneumothorax with continued bilateral opacities (right greater than left) relatively unchanged. Mediastinum and cardiac silhouette stable. Skeletal structures stable. Subcutaneous emphysema along the right lateral chest wall stable. IMPRESSION: Mildly decreased right apical pneumothorax. Diffuse bilateral airspace disease relatively unchanged. <Electronically signed by Navin Kohler > 12/23/20 0802
[2020-12-23] MEDS: ENTRESTO 24-26MG TABLET (SACUBITRIL/VALSARTAN) PO SCH ×2 (09:00→21:00)
[2020-12-23] MEDS: METOPROLOL SUCC *XL* 25MG TAB (TopROL *XL*) PO SCH ×2 (10:15→21:00)
--- NOTE | 2020-12-23 14:59 | IPN ---
PROGRESS NOTE DATE: 12/23/2020 SUBJECTIVE: Hilton was seen in the progressive care unit (PCU). His atrial fibrillation needs better control. His heart rate was 130 walking today. He feels some pleuritic pain in his right upper chest. Chest x-ray showed mildly decreased right apical pneumothorax. He had a fever of 101.8 this morning, which could be inflammatory from the talc pleurodesis. PHYSICAL EXAMINATION: VITAL SIGNS: Temperature 101.8, blood pressure 106/61, respiratory rate 16. GENERAL APPEARANCE: He is finally resting comfortably. LUNGS: Good air movement to the apices bilaterally. HEART: Regular rate and rhythm, rate around 100-120. ABDOMEN: Soft, nontender. No masses. EXTREMITIES: No peripheral edema. LABORATORY DATA: White count 12.4, hemoglobin 13, platelets 193. Sodium 140, potassium 4.1, BUN 17, creatinine 0.7, glucose 100. IMPRESSION: 1. Atrial fibrillation. His rate is elevated he has hold parameters that are limiting his metoprolol dosing. We will adjust them so that he is more likely to have the Entresto held than the metoprolol. 2. Congestive heart failure with reduced ejection fraction/dilated cardiomyopathy. Cardiology is involved. I will adjust the hold parameters so he is more likely to get his beta-jimena. 3. Status post talc pleurodesis by Dr. Klein two days ago. He is running a fever. It could be inflammatory from the procedure. We will need to keep an eye on that. White count is still good, though mildly elevated today.
[2020-12-23] MEDS: KETOROLAC 30 MG/ML 1ML VIAL IV SCH ×3 (16:06→21:31)
[2020-12-23] MEDS: FENTANYL/BUPIVACAINE/NACL BAG 250 ML EPIDURAL SCH (23:31)
[2020-12-24] VITALS (7 sets, daily range): BP systolic 102–127; BP diastolic 63–80
[2020-12-24] MEDS: KETOROLAC 30 MG/ML 1ML VIAL IV SCH ×4 (04:00→23:55)
[2020-12-24 06:22] LABS: BASO # 0.1 10^3/uL (0.0-0.2); BASO % 0.6 % (0.0-1.0); EOS # 0.5 10^3/uL (0.0-0.5); EOS % 5.4 % (0.0-3.0); HEMATOCRIT 41.6 % (42.0-52.0); HEMOGLOBIN 13.3 g/dl (13.5-17.5); LYMPH # 2.3 10^3/uL (1.5-5.0); LYMPH % 23.6 % (24.0-44.0); MEAN CORPUSCULAR HEMOGLOBIN 28.7 pg (27.0-33.0); MEAN CORPUSCULAR VOLUME 89.7 fl (80.0-96.0); MONO # 1.4 10^3/uL (0.0-0.8); NEUTROPHILS # 5.5 10^3/uL (1.5-8.5); NEUTROPHILS % 55.8 % (36.0-66.0); PLATELET COUNT, AUTOMATED 195 10^3/uL (150-450); RED BLOOD COUNT 4.64 10^6/uL (4.30-6.10); WHITE BLOOD COUNT 9.8 10^3/uL (4.0-10.0)
[2020-12-24 06:35] LABS: BLOOD UREA NITROGEN 15 MG/DL (7-18); CALCIUM LEVEL 8.1 MG/DL (8.8-10.2); CARBON DIOXIDE LEVEL 23 MEQ/L (21-32); CHLORIDE LEVEL 108 MEQ/L (98-107); GLOMERULAR FILTRATION RATE > 60.0 (>49); GLUCOSE, FASTING 84 MG/DL (70-100); POTASSIUM SERUM 4.1 MEQ/L (3.5-5.1); SODIUM LEVEL 136 MEQ/L (136-145)
[2020-12-24] MEDS ORDERED: FUROSEMIDE 40MG/4ML VIAL (J1940) IV ONE (07:30)
[2020-12-24] MEDS: LEVALBUTEROL 1.25 MG/0.5 ML CONCENTRATE NEB NEB SCH ×3 (07:39→20:00)
[2020-12-24] MEDS: ENTRESTO 24-26MG TABLET (SACUBITRIL/VALSARTAN) PO SCH ×2 (08:25→20:03)
[2020-12-24] MEDS: MOM 30ML SUSPENSION UDC PO SCH (08:25)
[2020-12-24] MEDS: PANTOPRAZOLE 40MG TAB (PROTONIX) PO SCH (08:25)
[2020-12-24] MEDS: METOPROLOL SUCC *XL* 25MG TAB (TopROL *XL*) PO SCH ×2 (08:26→20:16)
[2020-12-24] MEDS: HEPARIN SOD (PORCINE) 5000UNITS/ML 1ML VIAL/SYRINGE SC SCH ×2 (08:26→20:16)
[2020-12-24] MEDS: DOCUSATE SODIUM 100MG CAPSULE PO SCH ×2 (08:26→20:16)
--- NOTE | 2020-12-24 08:30 | REP ---
INDICATION: pnemothx COMPARISON: 12/23/2020 TECHNIQUE: PA and lateral. FINDINGS: Minimal residual right apical pneumothorax cannot be excluded. Right-sided chest tubes are in stable position. Scattered subtle bilateral opacities (right greater than left) are essentially unchanged. Mediastinum and cardiac silhouette are stable and within normal limits. Skeletal structures are stable. IMPRESSION: Very minimal residual right apical pneumothorax cannot be excluded. Scattered bibasilar opacities essentially unchanged. No new acute process. <Electronically signed by Navin Kohler > 12/24/20 0888
--- NOTE | 2020-12-24 08:36 | IPN ---
PROGRESS NOTE DATE: 12/23/2020 SUBJECTIVE: This is now the second postoperative day for Mr. Padilla. He is feeling well and his pain is being well-controlled with the epidural. He is starting to run a fever of 101.8 which is fully expected. His vital signs shows the above T-max with a heart range that ranges between 75 and 125 and in atrial fibrillation with a respiratory rate of 18 to 20 without the use of accessory muscles, who is 93 to 97% saturated on room air. His blood pressure is ranging between 120/88 to 103/70. His intake and output over the past 24 hours has been recorded as 2080 in and 2198 out for a negativity of 100 ml. He has put out 288 ml from the chest tube. There is no air leak today. His weight is pending today. OBJECTIVE: LUNGS: He has coarse rhonchi and perhaps even a pleural friction rub in the lower hemithorax on the right side. Percussion is full to the diaphragm. CARDIAC: Without murmurs, clicks, gallops or rubs. I cannot feel his PMI. S1 and S2 are normal. ABDOMEN: Soft, nontender. Bowel sounds are positive. There is no hepatomegaly. No CVA tenderness. EXTREMITIES: No pretibial edema. No calf tenderness. No differential swelling of the upper extremities. SKIN: Warm, dry, perfused without cyanosis or mottling including that of nailbeds and knees. NECK: Supple. There is no jugular venous distention. No subcutaneous emphysema. Trachea is midline. MOUTH: The mucous membranes are pink and moist. Lips and commissures without lesions or thrush. EYES: Pupils equal and reactive, extraocular muscles intact. Sclera nonicteric. NEUROLOGIC: Cranial nerves II-XII intact. Normal gross motor, gross sensation intact. Gait is not tested. PSYCHIATRIC: He is awake, alert and oriented x3 with appropriate mood and affect, and conversational. LABORATORY DATA: His count is 12.4 with a hemoglobin and hematocrit of 13.0 and 40.3 respectively. These are essentially unchanged from yesterday. Platelet count is 193,000 and stable differential shows 61% neutrophils, 21% lymphocytes and 12% monocytes. There are no immature forms or toxic granulations. Electrolytes are essentially normal with an improvement in his total CO2 up to 20. Calcium is 8.1 with a BUN and creatinine of 17 and 0.77. His chest x-ray today shows his lung fully expanded to the chest wall. It looks to be some residual lower lobe pushed off from atelectasis. Chest tube is in good place. There is no subcutaneous emphysema. IMPRESSION: 1. Postoperative day #2 status post talc pleurodesis and wedge resection. 2. New onset atrial fibrillation. 3. Hypertension. 4. Emphysematous bullous disease. 5. Cardiomyopathy. 6. Obesity. PLAN/DISCUSSION: I will continue his chest tube on suction today. I will not diuresis him as he looks to be doing that himself. Will continue his epidural as is. His metabolic acidosis looks to be improving.
--- NOTE | 2020-12-24 10:15 | IPN ---
PROGRESS NOTE DATE: 12/24/2020 SUBJECTIVE: Hilton is seen in PCU, having a better day today, less pleuritic pain, ambulating better. Having trouble getting IV access so he needs a PICC line. Other than that he seems to be having a good day and improving. Chest x-ray just shows very minimal residual right apical pneumothorax. OBJECTIVE: VITAL SIGNS: Stable. Last fever was yesterday morning at 101.8. Current temperature is 99.3. GENERAL APPEARANCE: He is alert, conversant, no distress. LUNGS: Good breath sounds bilaterally. HEART: Regular rate and rhythm. ABDOMEN: Soft, nontender. EXTREMITIES: No peripheral edema. Chest tubes right side. LABS: White count 9.8, hemoglobin 13.3, platelets 195. Sodium 136, potassium 4.1, BUN 15, creatinine 0.7, glucose 84. IMPRESSION AND PLAN: 1. Right pneumothorax status post talc pleurodesis postop day number three. Fever has abated. White count looks good. No sign of active infection. 2. Atrial fibrillation. His rate is controlled. HE IS CURRENTLY OFF HIS ELIQUIS FOR TALC PLEURODESIS. THIS SHOULD BE RESTARTED WHEN OKAY BY DR. BARNES/THORACIC SURGERY. 3. Anxiety with sleep disturbance. He is doing better since he got some Ambien at bedtime. 4. Congestive heart failure with reduced ejection fraction. He had an echocardiogram earlier in the hospitalization. Ejection fraction was only about 32%. Globally dilated hypokinetic left ventricle. No significant valvular disease. Cardiology was involved earlier in the hospitalization but has not seen him in awhile. He is cardiologically stable. 5. Pathology from the thoracoscopy/bronchoscopy/pleurodesis is pending.
--- NOTE | 2020-12-24 14:49 | IPN ---
PROGRESS NOTE DATE: 12/24/2020 SUBJECTIVE: This is now the third postoperative day for Mr. Padilla. He is doing well and his pain is being well-controlled with the epidural. There is no air leak today. OBJECTIVE: VITAL SIGNS: Show a T-max of 100.2 with a heart rate that ranges between 86 and 104 in atrial fibrillation with a respiratory rate of 17 to 18 without the use of accessory muscles who is 93% to 97% saturated on room air and whose blood pressure is ranging between 127/80 to 102/64. INTAKE AND OUTPUT: Over the past 24 hours has been recorded as 948 in and 1870 out for a negativity of 922 mL. He has put out 345 mL from the chest tube. Weight today is 95.9 kg compared to 95.7 kg two days ago. RESPIRATORY: He has equal breath sounds on either side. I hear a pleural friction rub throughout the right chest. Percussion notes are full to the diaphragm. CARDIAC: Without murmurs, clicks, gallops, or rubs. I cannot feel his PMI. S1 and S2 are normal. ABDOMEN: Soft and nontender. Bowel sounds are positive. There is no hepatomegaly. No CVA tenderness. EXTREMITIES: Show no pretibial edema. No calf tenderness. No differential swelling of the upper extremities. SKIN: Warm, dry, and perfused without cyanosis or mottling, including that of the nail beds and knees. NECK: Supple. There is no jugular venous distention. No subcutaneous emphysema. Trachea is midline. MOUTH: Shows the mucous membranes to be pink and moist. Lips and commisures are without lesions and no thrush. EYES: Show his pupils equal and reactive. Extraocular muscles are intact. Sclerae nonicteric. NEUROLOGIC: Shows II through XII intact. Normal gross motor, gross sensation intact. Gait is not tested. PSYCHIATRIC: Shows him to be awake, alert, and oriented x3 with appropriate mood and affect and conversational. LABORATORY DATA: His white count today is 9.8 with a hemoglobin and hematocrit of 13.3 and 41.6 unchanged from yesterday with a platelet count of 195,000. Differential shows 55% neutrophils, 23% lymphocytes, and 14% monocytes. There are no immature forms and no toxic granulations. His electrolytes are essentially normal with a BUN and creatinine of 15 and 0.70. Glucose of 84 and calcium of 8.1. There are no blood gases on him today. IMAGING DATA: His chest x-ray shows his lungs fully expand to the chest wall. Costophrenic angles are sharp. Chest tubes have been placed. There is no subcutaneous emphysema. IMPRESSION: 1. Recurrent spontaneous pneumothorax right side. 2. Postoperative day #3 status post talc pleurodesis and wedge resection. 3. New onset atrial fibrillation. 4. Hypertension. 5. Emphysematous bullous disease. 6. Cardiomyopathy. 7. Obesity. PLAN AND DISCUSSION: I will keep his chest tubes on suction today. I will diurese him today. I am gratified there is no air leak. If all goes well tomorrow, I will discontinue the suction and then hopefully pull the chest tubes the next day and then send him home the day after that.
[2020-12-24] MEDS ORDERED: LIDOCAINE 1% MDV 20ML VIAL As Ordered ONE (15:49)
[2020-12-24] MEDS ORDERED: SLF 3 ML SYR IV PRN (18:20)
[2020-12-24] MEDS ORDERED: SLF 3 ML SYR IV SCH (22:00)
[2020-12-25] MEDS: SODIUM CHLORIDE 0.9% INJ 10 ML SYR IV PRN ×2 (00:26→22:44)
[2020-12-25] MEDS: FENTANYL/BUPIVACAINE/NACL BAG 250 ML EPIDURAL SCH (00:27)
[2020-12-25] MEDS: LEVALBUTEROL 1.25 MG/0.5 ML CONCENTRATE NEB NEB SCH ×4 (02:00→20:00)
[2020-12-25] MEDS: KETOROLAC 30 MG/ML 1ML VIAL IV SCH ×4 (04:56→22:42)
[2020-12-25 04:57] VITALS: BP 109/71
[2020-12-25] MEDS: SODIUM CHLORIDE 0.9% INJ 10 ML SYR IV SCH ×2 (05:10→17:56)
[2020-12-25 05:28] LABS: BASO # 0.1 10^3/uL (0.0-0.2); BASO % 0.5 % (0.0-1.0); EOS # 0.6 10^3/uL (0.0-0.5); EOS % 5.8 % (0.0-3.0); HEMATOCRIT 37.9 % (42.0-52.0); HEMOGLOBIN 12.5 g/dl (13.5-17.5); LYMPH # 2.5 10^3/uL (1.5-5.0); LYMPH % 22.8 % (24.0-44.0); MEAN CORPUSCULAR HEMOGLOBIN 28.5 pg (27.0-33.0); MEAN CORPUSCULAR VOLUME 86.3 fl (80.0-96.0); MONO # 1.1 10^3/uL (0.0-0.8); MONO % 9.8 % (2.0-8.0); NEUTROPHILS # 6.7 10^3/uL (1.5-8.5); NEUTROPHILS % 60.4 % (36.0-66.0); PLATELET COUNT, AUTOMATED 226 10^3/uL (150-450); RED BLOOD COUNT 4.39 10^6/uL (4.30-6.10); WHITE BLOOD COUNT 11.1 10^3/uL (4.0-10.0)
[2020-12-25 05:52] LABS: BLOOD UREA NITROGEN 17 MG/DL (7-18); CALCIUM LEVEL 8.1 MG/DL (8.8-10.2); CARBON DIOXIDE LEVEL 25 MEQ/L (21-32); CHLORIDE LEVEL 108 MEQ/L (98-107); CREATININE FOR GFR 0.78 MG/DL (0.70-1.30); GLOMERULAR FILTRATION RATE > 60.0 (>49); GLUCOSE, FASTING 98 MG/DL (70-100); POTASSIUM SERUM 4.1 MEQ/L (3.5-5.1); SODIUM LEVEL 142 MEQ/L (136-145)
--- NOTE | 2020-12-25 07:55 | REP ---
INDICATION: Poor access. COMPARISON: None. TECHNIQUE: The procedure was performed under the direct supervision of Dr. Henry. The risks and benefits of the procedure were explained to the patient and informed consent was obtained. The right brachial vein was localized using ultrasound guidance. The skin was prepped and draped in a sterile fashion. 2% lidocaine was used as a local anesthetic. Using ultrasound guidance the brachial vein was cannulated and a 0.018 guidewire was inserted and advanced to the SVC using fluoroscopic guidance, and last image hold technology. The needle was removed and a 5 Chadian dilator and peel-away sheath was inserted over the guide wire. A 5 Chadian dual lumen catheter was cut to length of 44 cm. The dilator was removed and the catheter was inserted over the guide wire with the tip ending in the SVC. The peel-away sheath was removed and the catheter was flushed with heparinized saline as per Hospital protocol. The catheter was affixed to the skin and a sterile dressing was applied. Estimated blood loss: Less than 1 cc The patient tolerated the procedure well and there were no immediate complications. 0.2 minutes of fluoro time was utilized for this procedure. FINDINGS: None IMPRESSION: PICC line insertion right brachial vein with the tip ending in the SVC. <Electronically signed by Sherif Padilla > 12/24/20 0361 <Electronically signed by Sourav Henry > 12/25/20 1281
[2020-12-25 08:00] VITALS: BP 115/55
--- NOTE | 2020-12-25 08:40 | REP ---
INDICATION: pnemothx COMPARISON: 12/24/2020 TECHNIQUE: PA and lateral. FINDINGS: Two right-sided chest tubes in stable position. Right-sided pleuroparenchymal changes are similar to prior examination. Small amount of residual pleural fluid and possible small residual pneumothorax cannot be excluded along with mild scattered basilar atelectasis. Left hemithorax is relatively clear/stable. No new acute process identified. Right PICC line with tip in the SVC. Mediastinum and cardiac silhouette are stable and within normal limits. IMPRESSION: Right-sided pleuroparenchymal changes as described above similar to prior examination. No new acute process. <Electronically signed by Navin Kohler > 12/25/20 0837
[2020-12-25] MEDS: DOCUSATE SODIUM 100MG CAPSULE PO SCH ×2 (08:47→20:11)
[2020-12-25] MEDS: METOPROLOL SUCC *XL* 25MG TAB (TopROL *XL*) PO SCH ×2 (08:47→20:11)
[2020-12-25] MEDS: PANTOPRAZOLE 40MG TAB (PROTONIX) PO SCH (08:47)
[2020-12-25] MEDS: HEPARIN SOD (PORCINE) 5000UNITS/ML 1ML VIAL/SYRINGE SC SCH ×2 (08:48→20:12)
[2020-12-25] MEDS: ENTRESTO 24-26MG TABLET (SACUBITRIL/VALSARTAN) PO SCH ×2 (08:50→20:12)
[2020-12-25] MEDS: MOM 30ML SUSPENSION UDC PO SCH (08:50)
[2020-12-25 12:00] VITALS: BP 92/60
[2020-12-25] MEDS: FUROSEMIDE 40MG/4ML VIAL (J1940) IV ONE ×3 (12:25→17:54)
--- NOTE | 2020-12-25 12:57 | IPN ---
PROGRESS NOTE DATE: 12/25/2020 This is now the fourth postoperative day for Mr. Padilla. His pain is being well controlled. He still continues to be in atrial fibrillation. His vital signs show a maximum temperature of 97.4 with a heart rate that ranges between 82-97 in atrial fibrillation, respiratory rate that is constant at 18, who is 97%-98% saturated on room air and whose blood pressure is ranging between 115/55 to 109/71. His intake and output for the pat 24 hours have been recorded as 1812 in and 3600 out, for a negativity of nearly 1800 mL. He has put out 200 mL from the chest tube, and there is no air leak. Weight today is 96.8 kg compared to 95.9 kg yesterday. PHYSICAL EXAMINATION: His lungs show equal breath sounds on either side. Percussion note is full to the diaphragm. I hear no wheezes, rhonchi, or rales. I no longer hear the pleural friction rub. Cardiac exam is without murmurs, clicks, gallops, or rubs. I cannot feel his point of maximal impulse (PMI). S1 and S2 are normal. Abdomen is soft and nontender. Bowel sounds are positive. There is no hepatomegaly. No costovertebral angle (CVA) tenderness. Extremities show no pretibial edema, no calf tenderness, no differential swelling of the upper extremities. Skin is warm, dry, and perfused without cyanosis or mottling, including that of the nailbeds and knees. Neck is supple. There is no jugular venous distention. No subcutaneous emphysema. Trachea is midline. Mouth shows the mucous membranes to be pink and moist. Lips and commissures without lesions. No thrush. Eyes show his pupils to be equal and reactive. Extraocular motion intact. Sclerae anicteric. Neurologic shows II-XII intact. Normal gross motor, gross sensation intact. Gait is not tested. Psychiatric shows him to be awake, alert, and oriented times three with appropriate mood and affect and conversational. White count today is 11.1 with a hemoglobin and hematocrit of 12.5 and 37.9. Platelets are 226 and stable, and differential shows 66% neutrophils, 22% lymphocytes, 9% monocytes. There are no immature forms or toxic granulations. Electrolytes are essentially normal with a BUN and creatinine of 17 and 0.78, glucose of 98, and a calcium of 8.1. His chest x-ray today shows his lung fully expanded to the chest wall. There is a diffuse haze throughout, particularly in the lower left hemithorax, probably secondary to pleural thickening. There is no subcutaneous emphysema and no posterior infiltrates on the lateral film. Chest tubes are in good place. IMPRESSION: 1. Postoperative day #4, status post talc pleurodesis and wedge resection, right upper lobe. 2. New-onset atrial fibrillation. 3. Recurrent spontaneous pneumothorax on the right side. 4. Hypertension. 5. Emphysematous bullous disease. 6. Cardiomyopathy. 7. Obesity. PLAN AND DISCUSSION: I will discontinue the suction on his chest tubes today. Tomorrow I plan to remove them. I will again diurese him today. His potassium is 4.1, and I will not give him potassium supplementation to go along with the Lasix. Hopefully he will be ready for discharge in 2 days.
[2020-12-25 14:10] VITALS: BP 116/76
--- NOTE | 2020-12-25 15:26 | IPNPDOC ---
Subjective Date Seen The patient was seen on 12/25/20. Subjective Chief Complaint/HPI Patient is comfortable in no distress offers no new complaints chest tube in place General: Denies: ROS Unobtainable, Chills, Night Sweats, Fatigue, Malaise, Normal Appetite, Other Symptoms Constitutional: Denies: Chills, Fever, Malaise, Night Sweats, Weakness, Fatigue, Weight Loss, Lethargy, Other Eyes: Denies: Pain, Vision change, Conjunctivae inflammation, Eyelid inflammati on, Redness, Other ENT: Denies: Head Aches, Ear Pain, Dysphagia, Sinus Congestion, Post Nasal Drip, Sore Throat, Epistaxis, Other Symptoms Skin: Denies: Rash, Lesions, Jaundice, Bruising, Itching, Dry, Breakdown, Nail Changes, Other Pulmonary: Denies: Dyspnea, Cough, Pleuritic Chest Pain, Other Symptoms Cardiovascular: Denies: Chest Pain, Palpitations, Orthopnea, Paroxysmal Noc. Dyspnea, Edema, Lt Headedness, Other Symptoms Gastrointestinal: Denies: Nausea, Vomiting, Abdominal Pain, Diarrhea, Constipation, Melena, Hematochezia, Other Symptoms Genitourinary: Denies: Dysuria, Frequency, Incontinence, Hematuria, Retention, Other Symptoms Hematologic: Denies: Bruising, Bleeding Excessively, Petecchia, Purpura, Enlarged Lymph Nodes, Other Hematologic Endocrine: Denies: Polydipsia, Polyphagia, Polyuria, Heat Intolerance, Cold Intolerance, Other Endocrine Sx Musculoskeletal: Denies: Neck Pain, Back Pain, Shoulder Pain, Arm Pain, Hand Pain, Leg Pain, Foot Pain, Joint Pain, Muscle Pain, Spasms, Other Symptoms Neurological: Denies: Weakness, Numbness, Incoordination, Change in speech, Confusion, Seizures, Other Symptoms Psych: Denies: Mood Normal, Anxiety, Depression, Memory Issues, Thoughts of Self Harm, Anger, Thoughts of Harming Other, Other Psych Objective Physical Examination General Exam: Positive: Alert, Cooperative Eye Exam: Positive: PERRLA ENT Exam: Positive: Atraumatic Neck Exam: Positive: Supple Chest Exam: Positive: Other (Basal crackles but no rales rhonchi wheezing) Heart Exam: Positive: Rate Normal, Normal S1, Normal S2 Abdomen Exam: Positive: Normal bowel sounds, Soft Extremity Exam: Positive: Other (No clubbing sinus edema) Skin Exam: Positive: Nl turgor and temperature Neuro Exam: Positive: Other (No focal motor or sensory deficit) Assessment /Plan Problems (1) Atrial fibrillation Status: Acute (2) Pneumothorax Status: Acute Plan/VTE VTE Prophylaxis Ordered?: Yes Plan #1" right pneumothorax, status post talc pleurodesis postop day #4 Thoracic surgery followed by Dr. Klein appreciate Pathology from bronchoscopy is pending Patient suctioned on the chest tube was discontinued by Dr. Klein today, And tomorrow is planning to remove the chest tubes and he will be diuresed today. And hopefully he will be discharged in a day or 2. . #2: Atrial fibrillation, rate is under well controlled patient is off Eliquis secondary to pleurodesis he will be started on Eliquis once cleared by thoracic surgery #3 congestive heart failure with decreased ejection fraction of 32% and globally dilated hypokinetic left ventricle. Patient is currently well compensated and continue all home meds VS, I&O, 24H, Fishbone Vital Signs/I&O Vital Signs Date Time Temp Pulse Resp B/P (MAP) Pulse Ox O2 Delivery O2 Flow Rate FiO2 12/25/20 14:10 116/76 (89) 12/25/20 12:00 85 18 100 Room Air 12/25/20 08:00 96.6 12/22/20 07:00 2.0 I&O- Last 24 Hours up to 6 AM 12/25/20 05:59 Intake Total 2112 ml Output Total 3280 ml Balance -1168 ml Laboratory Data 24H LABS Laboratory Tests 2 12/25/20 05:09: Immature Granulocyte % (Auto) 0.7, Neutrophils (%) (Auto) 60.4, Lymphocytes (%) (Auto) 22.8L, Monocytes (%) (Auto) 9.8H, Eosinophils (%) (Auto) 5.8H, Basophils (%) (Auto) 0.5, Neutrophils # (Auto) 6.7, Lymphocytes # (Auto) 2.5, Monocytes # (Auto) 1.1H, Eosinophils # (Auto) 0.6H, Basophils # (Auto) 0.1, Nucleated Red Blood Cells % (auto) 0.0, Anion Gap 9, Glomerular Filtration Rate > 60.0, Calcium Level 8.1L CBC/BMP Laboratory Tests 12/25/20 05:09 Microbiology Microbiology 12/17/20 Stool Occult Blood (MIKHAIL) - Final, Complete ERIKA,ISAAC MD Dec 25, 2020 15:26
[2020-12-25 16:00] VITALS: BP 117/65
[2020-12-25 19:46] VITALS: BP 107/61
[2020-12-26 00:45] VITALS: BP 105/71
[2020-12-26] MEDS: FENTANYL/BUPIVACAINE/NACL BAG 250 ML EPIDURAL SCH (01:00)
[2020-12-26] MEDS: LEVALBUTEROL 1.25 MG/0.5 ML CONCENTRATE NEB NEB SCH ×4 (02:00→20:00)
[2020-12-26 05:00] VITALS: BP 104/67
[2020-12-26] MEDS: KETOROLAC 30 MG/ML 1ML VIAL IV SCH ×4 (05:09→22:06)
[2020-12-26] MEDS: SODIUM CHLORIDE 0.9% INJ 10 ML SYR IV SCH ×2 (05:10→16:10)
[2020-12-26 05:57] LABS: BASO # 0.1 10^3/uL (0.0-0.2); BASO % 0.6 % (0.0-1.0); EOS # 0.7 10^3/uL (0.0-0.5); EOS % 7.2 % (0.0-3.0); HEMATOCRIT 37.6 % (42.0-52.0); HEMOGLOBIN 12.4 g/dl (13.5-17.5); LYMPH # 2.1 10^3/uL (1.5-5.0); MEAN CORPUSCULAR HEMOGLOBIN 28.5 pg (27.0-33.0); MEAN CORPUSCULAR VOLUME 86.4 fl (80.0-96.0); MONO % 10.9 % (2.0-8.0); NEUTROPHILS # 5.5 10^3/uL (1.5-8.5); NEUTROPHILS % 58.4 % (36.0-66.0); PLATELET COUNT, AUTOMATED 242 10^3/uL (150-450); RED BLOOD COUNT 4.35 10^6/uL (4.30-6.10); WHITE BLOOD COUNT 9.4 10^3/uL (4.0-10.0)
[2020-12-26 06:24] LABS: ALBUMIN 2.6 GM/DL (3.2-5.2); ALT/SGPT 42 U/L (12-78); BILIRUBIN,TOTAL 0.4 MG/DL (0.2-1.0); BLOOD UREA NITROGEN 18 MG/DL (7-18); CALCIUM LEVEL 8.4 MG/DL (8.8-10.2); CARBON DIOXIDE LEVEL 28 MEQ/L (21-32); CHLORIDE LEVEL 106 MEQ/L (98-107); CREATININE FOR GFR 0.71 MG/DL (0.70-1.30); GLOMERULAR FILTRATION RATE > 60.0 (>49); GLUCOSE, FASTING 95 MG/DL (70-100); MAGNESIUM LEVEL 2.1 MG/DL (1.8-2.4); POTASSIUM SERUM 3.9 MEQ/L (3.5-5.1); SODIUM LEVEL 139 MEQ/L (136-145); TOTAL PROTEIN 5.6 GM/DL (6.4-8.2)
[2020-12-26 08:00] VITALS: BP 111/77
[2020-12-26] MEDS: ENTRESTO 24-26MG TABLET (SACUBITRIL/VALSARTAN) PO SCH ×3 (08:20→20:41)
[2020-12-26] MEDS: PANTOPRAZOLE 40MG TAB (PROTONIX) PO SCH (08:20)
[2020-12-26] MEDS: DOCUSATE SODIUM 100MG CAPSULE PO SCH ×2 (08:20→20:34)
[2020-12-26] MEDS: METOPROLOL SUCC *XL* 25MG TAB (TopROL *XL*) PO SCH ×2 (08:20→20:34)
[2020-12-26] MEDS: HEPARIN SOD (PORCINE) 5000UNITS/ML 1ML VIAL/SYRINGE SC SCH ×2 (08:21→20:35)
[2020-12-26] MEDS: MOM 30ML SUSPENSION UDC PO SCH (08:21)
--- NOTE | 2020-12-26 08:55 | REP ---
INDICATION: pnemothx COMPARISON: 12/25/2020 TECHNIQUE: PA and lateral. FINDINGS: Right-sided chest tubes in stable position. Right PICC line in stable position. Right-sided pleuroparenchymal changes are relatively stable. No obvious residual pleural effusion or pneumothorax identified. Left hemithorax appears stable. Underlying bilateral chronic changes are noted. No obvious new acute process identified. IMPRESSION: No obvious residual right pleural effusion or pneumothorax. Lung lipscomb are otherwise relatively stable. Right-sided parenchymal changes are again suspected along with diffuse bilateral chronic changes. No obvious new acute process identified. <Electronically signed by Navin Kohler > 12/26/20 0883
[2020-12-26 12:00] VITALS: BP 109/77
--- NOTE | 2020-12-26 12:19 | IPN ---
PROGRESS NOTE DATE: 12/26/2020 This is now the fifth postoperative day for Mr. Padilla. There is no air leak and he is feeling well. Pain is being well controlled with the epidural at 6 mL per hour. His vital signs show a maximum temperature of 98.7 with a heart rate that ranges between 86-101 in atrial fibrillation with a respiratory rate of 18-20 without the use of accessory muscles, who is 95%-96% saturated on room air and whose blood pressure is ranging between 111/77 to 104/67. PHYSICAL EXAMINATION: His lungs show equal breath sounds on either side. I hear no wheezes, rhonchi, or rales. There is no pleural friction rub. Percussion note is full to the diaphragm. Cardiac exam shows an irregular rate and rhythm without murmurs, clicks, gallops, or rubs. I cannot feel his point of maximal impulse (PMI). S1 and S2 are normal. Abdomen is soft and nontender. Bowel sounds are positive. There is no hepatomegaly. No costovertebral angle (CVA) tenderness. Extremities show no pretibial edema, no calf tenderness, no differential swelling of the upper extremities. Skin is warm, dry, and perfused without cyanosis or mottling, including that of the nailbeds and knees. Neck is supple. There is no jugular venous distention. No subcutaneous emphysema. Trachea is midline. Mouth shows the mucous membranes to be pink and moist. Lips and commissures without lesions. No thrush. Eyes show his pupils to be equal and reactive. Extraocular motion intact. Sclerae anicteric. Neurologic shows II-XII intact. Normal gross motor, gross sensation intact. Gait is not tested. Psychiatric shows him to be awake, alert, and oriented times three with appropriate mood and affect and conversational. His white count today is 9.4 with a hemoglobin and hematocrit of 12.4 and 37.6, respectively. Platelet count is 242 and stable, and differential shows 58% neutrophils, 22% lymphocytes, 10% monocytes. There are no immature forms or toxic granulations. Chemistries today show normal electrolytes with a BUN and creatinine of 18 and 0.71, glucose of 95, and a calcium of 8.4. Albumin is 2.6. Chest x-ray shows his lung fully expanded to the chest wall. Costophrenic angles are sharp, and I see no infiltrates. IMPRESSION: 1. Postoperative day #5 status post talc pleurodesis and wedge resection, right upper lobe. 2. New-onset atrial fibrillation, continuing. 3. Recurrent spontaneous pneumothorax on the right side. 4. Hypertension. 5. Emphysematous bullous disease. 6. Cardiomyopathy. 7. Obesity. PLAN AND DISCUSSION: I will discontinue his chest tubes today, wean his epidural, and discontinue his Walker. If all goes well, we will plan for discharge in the morning. I will need to restart his anticoagulation prior to leaving the hospital and after the epidural is removed.
--- NOTE | 2020-12-26 12:49 | IPNPDOC ---
Subjective Date Seen The patient was seen on 12/26/20. Subjective Chief Complaint/HPI Patient is doing very well hopefully chest tube will be discontinued today but depends on Dr. Klein's assessment General: Denies: ROS Unobtainable, Chills, Night Sweats, Fatigue, Malaise, Normal Appetite, Other Symptoms Constitutional: Denies: Chills, Fever, Malaise, Night Sweats, Weakness, Fatigue , Weight Loss, Lethargy, Other Pulmonary: Denies: Dyspnea, Cough, Pleuritic Chest Pain, Other Symptoms Cardiovascular: Denies: Chest Pain, Palpitations, Orthopnea, Paroxysmal Noc. Dyspnea, Edema, Lt Headedness, Other Symptoms Gastrointestinal: Denies: Nausea, Vomiting, Abdominal Pain, Diarrhea, Constipation, Melena, Hematochezia, Other Symptoms Musculoskeletal: Denies: Neck Pain, Back Pain, Shoulder Pain, Arm Pain, Hand Pain, Leg Pain, Foot Pain, Joint Pain, Muscle Pain, Spasms, Other Symptoms Objective Physical Examination Neck Exam: Positive: Supple Chest Exam: Positive: Other (Basal crackles but no rales rhonchi wheezing) Heart Exam: Positive: Rate Normal, Normal S1, Normal S2 Abdomen Exam: Positive: Normal bowel sounds, Soft Extremity Exam: Positive: Other (No clubbing sinus edema) Skin Exam: Positive: Nl turgor and temperature Neuro Exam: Positive: Other (No focal motor or sensory deficit) Assessment /Plan Problems (1) Atrial fibrillation Status: Acute (2) Pneumothorax Status: Acute Plan/VTE VTE Prophylaxis Ordered?: Yes Plan #1: right pneumothorax, status post talc pleurodesis postop day #5 Dr. Klein DC'd the chest pupils, wean off epidural and DC'd Walker catheter today Patient's anticoagulation will be restarted once the chest tube is out and epidural has been weaned off Further follow-up with Dr. Klein as an outpatient Once he is completely clear from thoracic surgery will discharge patient home . #2: Atrial fibrillation, rate is under well controlled patient is off Eliquis secondary to pleurodesis he will be started on Eliquis once cleared by thoracic surgery #3 congestive heart failure with decreased ejection fraction of 32% and globally dilated hypokinetic left ventricle. Patient is currently well compensated and continue all home meds VS, I&O, 24H, Fishbone Vital Signs/I&O Vital Signs Date Time Temp Pulse Resp B/P (MAP) Pulse Ox O2 Delivery O2 Flow Rate FiO2 12/26/20 08:20 95 111/77 12/26/20 08:00 96.9 18 96 Room Air 12/22/20 07:00 2.0 I&O- Last 24 Hours up to 6 AM 12/26/20 06:00 Intake Total 1140 ml Output Total 1765 ml Balance -625 ml Laboratory Data 24H LABS Laboratory Tests 2 12/26/20 05:31: Immature Granulocyte % (Auto) 0.9, Neutrophils (%) (Auto) 58.4, Lymphocytes (%) (Auto) 22.0L, Monocytes (%) (Auto) 10.9H, Eosinophils (%) (Auto) 7.2H, Basophils (%) (Auto) 0.6, Neutrophils # (Auto) 5.5, Lymphocytes # (Auto) 2.1, Monocytes # (Auto) 1.0H, Eosinophils # (Auto) 0.7H, Basophils # (Auto) 0.1, Nucleated Red Blood Cells % (auto) 0.0, Anion Gap 5L, Glomerular Filtration Rate > 60.0, Calcium Level 8.4L, Magnesium Level 2.1, Total Bilirubin 0.4, Aspartate Amino Transf (AST/SGOT) 19, Alanine Aminotransferase (ALT/SGPT) 42, Alkaline Phosphatase 68, Total Protein 5.6L, Albumin 2.6L, Albumin/Globulin Ratio 0.9 CBC/BMP Laboratory Tests 12/26/20 05:31 Microbiology Microbiology 12/17/20 Stool Occult Blood (MIKHAIL) - Final, Complete ISAAC JAMES MD Dec 26, 2020 12:49
[2020-12-26] MEDS: PERCOCET 5MG/325MG TAB PO PRN ×3 (13:07→22:10)
[2020-12-26 16:00] VITALS: BP 135/80
[2020-12-26] MEDS: SODIUM CHLORIDE 0.9% INJ 10 ML SYR IV PRN (16:06)
[2020-12-26 20:30] VITALS: BP 115/76
[2020-12-27] VITALS: BP 109/67
[2020-12-27] MEDS ORDERED: RAMELTEON 8 MG TAB (ROZEREM) PO PRN (00:30)
[2020-12-27] MEDS: LEVALBUTEROL 1.25 MG/0.5 ML CONCENTRATE NEB NEB SCH ×2 (02:00→08:00)
[2020-12-27 04:00] VITALS: BP 113/87
[2020-12-27] MEDS: KETOROLAC 30 MG/ML 1ML VIAL IV SCH ×2 (04:02→10:35)
[2020-12-27] MEDS: SODIUM CHLORIDE 0.9% INJ 10 ML SYR IV SCH (05:51)
[2020-12-27 06:27] LABS: BASO # 0.1 10^3/uL (0.0-0.2); BASO % 0.8 % (0.0-1.0); EOS # 0.7 10^3/uL (0.0-0.5); EOS % 6.9 % (0.0-3.0); HEMATOCRIT 38.6 % (42.0-52.0); HEMOGLOBIN 12.7 g/dl (13.5-17.5); LYMPH # 1.7 10^3/uL (1.5-5.0); LYMPH % 16.5 % (24.0-44.0); MEAN CORPUSCULAR HEMOGLOBIN 28.5 pg (27.0-33.0); MEAN CORPUSCULAR HGB CONC 32.9 g/dl (32.0-36.5); MEAN CORPUSCULAR VOLUME 86.7 fl (80.0-96.0); MONO % 9.8 % (2.0-8.0); NEUTROPHILS # 6.8 10^3/uL (1.5-8.5); NEUTROPHILS % 64.6 % (36.0-66.0); PLATELET COUNT, AUTOMATED 243 10^3/uL (150-450); RED BLOOD COUNT 4.45 10^6/uL (4.30-6.10); WHITE BLOOD COUNT 10.5 10^3/uL (4.0-10.0)
[2020-12-27 06:54] LABS: BLOOD UREA NITROGEN 21 MG/DL (7-18); CALCIUM LEVEL 8.4 MG/DL (8.8-10.2); CARBON DIOXIDE LEVEL 24 MEQ/L (21-32); CHLORIDE LEVEL 108 MEQ/L (98-107); CREATININE FOR GFR 0.74 MG/DL (0.70-1.30); GLOMERULAR FILTRATION RATE > 60.0 (>49); GLUCOSE, FASTING 105 MG/DL (70-100); POTASSIUM SERUM 4.5 MEQ/L (3.5-5.1); SODIUM LEVEL 140 MEQ/L (136-145)
[2020-12-27 07:49] VITALS: BP 113/87
[2020-12-27] MEDS: PERCOCET 5MG/325MG TAB PO PRN (07:49)
[2020-12-27] MEDS: METOPROLOL SUCC *XL* 25MG TAB (TopROL *XL*) PO SCH (07:49)
[2020-12-27] MEDS: PANTOPRAZOLE 40MG TAB (PROTONIX) PO SCH (07:49)
[2020-12-27] MEDS: DOCUSATE SODIUM 100MG CAPSULE PO SCH (07:49)
[2020-12-27] MEDS: HEPARIN SOD (PORCINE) 5000UNITS/ML 1ML VIAL/SYRINGE SC SCH (07:50)
[2020-12-27 08:00] VITALS: BP 116/80
--- NOTE | 2020-12-27 08:24 | REP ---
INDICATION: pneumothorax. COMPARISON: Comparison chest x-ray December 26, 2020. TECHNIQUE: Two views.. FINDINGS: In the interval since yesterday's chest radiograph, the 2 right-sided chest tubes have been withdrawn. There is a small quantity of extra thoracic soft tissue emphysema along the right lower lateral costal margin. A right-sided PICC line remains in place. There is no evidence of pneumothorax or hydrothorax. There is minimal linear discoid atelectasis in the right base. Some right apical pleural thickening is again seen unchanged. The epidural catheter is also been withdrawn. EKG electrodes are seen. No new infiltrate IMPRESSION: Status post chest tube removal. No evidence of pneumothorax. Platelike atelectasis right base.. <Electronically signed by Sourav Henry > 12/27/20 [id number]
[2020-12-27] MEDS ORDERED: ELIQ5TAB PO (08:52)
[2020-12-27] MEDS ORDERED: PERCOCET PO (08:52)
[2020-12-27] MEDS: ENTRESTO 24-26MG TABLET (SACUBITRIL/VALSARTAN) PO SCH (09:00)
[2020-12-27] MEDS: MOM 30ML SUSPENSION UDC PO SCH (09:00)
--- NOTE | 2020-12-27 09:06 | IPNPDOC ---
Subjective Date Seen The patient was seen on 12/27/20. Subjective Chief Complaint/HPI Patient's chest tube is out he is comfortable in no distress awaiting follow-up from thoracic surgery for discharge General: Denies: ROS Unobtainable, Chills, Night Sweats, Fatigue, Malaise, Normal Appetite, Other Symptoms Constitutional: Denies: Chills, Fever, Malaise, Night Sweats, Weakness, Fatigu e, Weight Loss, Lethargy, Other Pulmonary: Denies: Dyspnea, Cough, Pleuritic Chest Pain, Other Symptoms Cardiovascular: Denies: Chest Pain, Palpitations, Orthopnea, Paroxysmal Noc. Dyspnea, Edema, Lt Headedness, Other Symptoms Gastrointestinal: Denies: Nausea, Vomiting, Abdominal Pain, Diarrhea, Constipation, Melena, Hematochezia, Other Symptoms Musculoskeletal: Denies: Neck Pain, Back Pain, Shoulder Pain, Arm Pain, Hand Pain, Leg Pain, Foot Pain, Joint Pain, Muscle Pain, Spasms, Other Symptoms Neurological: Denies: Weakness, Numbness, Incoordination, Change in speech, Confusion, Seizures, Other Symptoms Objective Physical Examination Neck Exam: Positive: Supple Chest Exam: Positive: Other (Basal crackles but no rales rhonchi wheezing) Heart Exam: Positive: Rate Normal, Normal S1, Normal S2 Abdomen Exam: Positive: Normal bowel sounds, Soft Extremity Exam: Positive: Other (No clubbing sinus edema) Skin Exam: Positive: Nl turgor and temperature Neuro Exam: Positive: Other (No focal motor or sensory deficit) Assessment /Plan Problems (1) Atrial fibrillation Status: Acute (2) Pneumothorax Status: Acute Plan/VTE VTE Prophylaxis Ordered?: Yes Plan #1: right pneumothorax, status post talc pleurodesis postop day #6 Chest tube, epidural and Walker catheter were DC'd yesterday Patient's anticoagulation with a novel anticoagulant will be restarted on discharge per thoracic surgery Patient is awaiting follow-up by Dr. Klein for possible discharge home today Further follow-up instruction as per thoracic surgery #2: Atrial fibrillation, rate is under well controlled patient is off Eliquis secondary to pleurodesis he will be started on Eliquis once cleared by thoracic surgery #3 congestive heart failure with decreased ejection fraction of 32% and globally dilated hypokinetic left ventricle. Patient is currently well compensated and continue all home meds VS, I&O, 24H, Anyi Vital Signs/I&O Vital Signs Date Time Temp Pulse Resp B/P (MAP) Pulse Ox O2 Delivery O2 Flow Rate FiO2 12/27/20 07:49 72 113/87 12/27/20 07:49 18 Room Air 12/27/20 04:00 96.7 94 12/22/20 07:00 2.0 I&O- Last 24 Hours up to 6 AM 12/27/20 06:00 Intake Total 300 ml Output Total 50 ml Balance 250 ml Laboratory Data 24H LABS Laboratory Tests 2 12/27/20 06:16: Immature Granulocyte % (Auto) 1.4, Neutrophils (%) (Auto) 64.6, Lymphocytes (%) (Auto) 16.5L, Monocytes (%) (Auto) 9.8H, Eosinophils (%) (Auto) 6.9H, Basophils (%) (Auto) 0.8, Neutrophils # (Auto) 6.8, Lymphocytes # (Auto) 1.7, Monocytes # (Auto) 1.0H, Eosinophils # (Auto) 0.7H, Basophils # (Auto) 0.1, Nucleated Red Blood Cells % (auto) 0.0, Anion Gap 8, Glomerular Filtration Rate > 60.0, Calcium Level 8.4L CBC/BMP Laboratory Tests 12/27/20 06:16 Microbiology Microbiology 12/17/20 Stool Occult Blood ([facility]IL) - Final, Complete ISAAC JAMES MD Dec 27, 2020 09:06
[2020-12-27] MEDS ORDERED: ENTR1TAB PO (10:25)
[2020-12-27] MEDS ORDERED: METO1TAB32 PO (10:25)
[2020-12-27] MEDS ORDERED: RAME8TAB2 PO (10:25)
[2020-12-27] MEDS ORDERED: PANT40TA29 PO (10:25)
--- NOTE | 2020-12-27 10:38 | DSES ---
DISCHARGE SUMMARY DATE OF ADMISSION: 12/16/2020 DATE OF DISCHARGE: 12/27/2020 DISCHARGE DIAGNOSES: 1. Postoperative day #6 status post talc pleurodesis and wedge resection right upper lobe. 2. Recurrent spontaneous pneumothorax on the right side. 3. New onset atrial fibrillation continuing at discharge. 4. Hypertension. 5. Emphysematous bullous disease. 6. Cardiomyopathy. 7. Obesity. HOSPITAL COURSE: The patient is a 65-year-old white male who on December 16 awoke suddenly short of breath with chest pressure. He has a known cardiomyopathy and is being treated by cardiology in [place]. He was brought to the emergency room and was found to have a large right-sided pneumothorax. He had no cough, fever, chills, sweats, or sputum production prior to the pneumothorax or chest pain prior to the pneumothorax. A chest tube was placed and the lung reexpanded with the air leak abating. The chest tube was then removed once again only to have the pneumothorax reoccur the next day with shortness of breath. Because of his atrial fibrillation that he was seen to be in, in the emergency room, he was started on Eliquis. The Eliquis was stopped and the patient was scheduled to go to the operating room where he underwent a wedge resection of a large ruptured bullous, which was also clearly seen on CT scan. His history was also significant for smoking about a pack of cigarettes a week and also marijuana use daily. He had a benign postoperative course with his chest tubes being removed on the fifth postoperative day after the air leak ceased on the second postoperative day. DISCHARGE MEDICATIONS: He is being discharged on his home medications, which include 1. Tylenol 325 mg p.r.n. pain. 2. Percocet 5/325 q. 4-6 hours p.r.n. pain. 3. Aspirin 81 mg q. day. 4. Carvedilol 12.5 mg b.i.d. 5. Losartan 25 mg q. h.s. 6. Eliquis 5 mg b.i.d. DISCHARGE FOLLOW-UP: He is to return to see me in one week with a chest x-ray and he is to call his gang punch operator in [place] to address his atrial fibrillation. DISCHARGE LABORATORY DATA: Show white count of 10.5 with hemoglobin and hematocrit of 12.7 and 38.6 with a platelet count of 243,000. Chemistries show normal electrolytes with potassium of 4.5. Calcium is 8.4 with a BUN and creatinine of 21 and 0.74. DISCHARGE IMAGING DATA: His chest x-ray shows his lungs fully expanded to the chest wall. Costophrenic angles are sharp. He will return to see me in one week with a chest x-ray.
[2020-12-27] MEDS ORDERED: APIXABAN 5 MG TAB (ELIQUIS) PO SCH (11:00)
== END 2020-12-27 11:31 | disposition home or self-care (01) | DRG 143 ==
LOC: M ED 11:41 → M ED INP 12:37 → M PCU 12:44 → M ICU 12-21 22:26 → M PCU 12-22 20:46
PROVIDERS: ADMIT Thoracic Surgery (Cardiothoracic Vascular Surgery); ATTEND Thoracic Surgery (Cardiothoracic Vascular Surgery)
PROC: 0W9930Z Drainage of Right Pleural Cavity with Drainage Device, Percutaneous Approach (ICD-10-PCS; principal; 2020-12-16)
PROC: 0W9930Z Drainage of Right Pleural Cavity with Drainage Device, Percutaneous Approach (ICD-10-PCS; 2020-12-19)
PROC: 3E0L3GC Introduction of Other Therapeutic Substance into Pleural Cavity, Percutaneous Approach (ICD-10-PCS; 2020-12-21)
PROC: 0BB Respiratory System, Excision (ICD-10-PCS; 2020-12-21)
DX: J93.83 Other pneumothorax (principal); I11.0 Hypertensive heart disease with heart failure; I50.42 Chronic combined systolic (congestive) and diastolic (congestive) heart failure; I48.91 Unspecified atrial fibrillation; E66.9 Obesity, unspecified; I25.5 Ischemic cardiomyopathy; L13.8 Other specified bullous disorders; J43.9 Emphysema, unspecified; F17.210 Nicotine dependence, cigarettes, uncomplicated; F12.90 Cannabis use, unspecified, uncomplicated; Z79.82 Long term (current) use of aspirin; Z79.899 Other long term (current) drug therapy; G47.33 Obstructive sleep apnea (adult) (pediatric); E78.5 Hyperlipidemia, unspecified; I34.0 Nonrheumatic mitral (valve) insufficiency; K57.30 Diverticulosis of large intestine without perforation or abscess without bleeding

== ENCOUNTER → 2021-01-03 | Outpatient (CLI) | payer OTHER ==
[~2021-01-03] MED LIST changes: +ACET-907 PO; +ELIQ5TAB PO; +ENTR1TAB PO; +LOSA25TA14 PO; +METO1TAB32 PO; +PANT40TA29 PO; +PERCOCET PO; +RAME8TAB2 PO
--- NOTE | 2021-01-03 10:33 | REP ---
INDICATION: OTHER PNEUMOTHORAX. COMPARISON: Comparison chest x-ray December 27, 2020. TECHNIQUE: Two views.. FINDINGS: In the interval since the last exam, the right-sided PICC line is been removed. There is no evidence of pneumothorax or hydrothorax. In increased interstitial markings persist in the right base although there is improvement. No new infiltrate is seen. Mild cardiomegaly is observed. The aorta is tortuous. No acute bony abnormality. Post thoracotomy suture line visible right upper lobe. IMPRESSION: Increased interstitial markings right base improved from the comparison study. Mild cardiac enlargement. Otherwise no acute disease. There is a post thoracotomy suture line in the right upper lobe region.. <Electronically signed by Sourav Henry > 01/03/21 1021
== END ==
LOC: M PLAIMG 10:09
PROVIDERS: ATTEND Thoracic Surgery (Cardiothoracic Vascular Surgery)
DX: J93.83 Other pneumothorax (principal)

== ENCOUNTER → 2021-01-04 | Outpatient (REF) | payer OTHER ==
[~2021-01-04] MED LIST changes: -LISI2.5T2 PO; +LISI2.5T9 PO
[2021-01-04 17:04] LABS: BASO # 0.1 10^3/uL (0.0-0.2); BASO % 0.5 % (0.0-1.0); EOS # 0.1 10^3/uL (0.0-0.5); EOS % 0.7 % (0.0-3.0); HEMATOCRIT 42.3 % (42.0-52.0); HEMOGLOBIN 13.9 g/dl (13.5-17.5); LYMPH % 11.3 % (24.0-44.0); MEAN CORPUSCULAR HEMOGLOBIN 28.3 pg (27.0-33.0); MEAN CORPUSCULAR HGB CONC 32.9 g/dl (32.0-36.5); MONO # 1.8 10^3/uL (0.0-0.8); MONO % 10.3 % (2.0-8.0); NEUTROPHILS # 13.3 10^3/uL (1.5-8.5); NEUTROPHILS % 76.7 % (36.0-66.0); PLATELET COUNT, AUTOMATED 358 10^3/uL (150-450); RED BLOOD COUNT 4.92 10^6/uL (4.30-6.10)
[2021-01-04 17:28] LABS: ALBUMIN 3.1 GM/DL (3.2-5.2); ALT/SGPT 29 U/L (12-78); BILIRUBIN,TOTAL 0.6 MG/DL (0.2-1.0); BLOOD UREA NITROGEN 12 MG/DL (7-18); CALCIUM LEVEL 8.5 MG/DL (8.8-10.2); CARBON DIOXIDE LEVEL 26 MEQ/L (21-32); CHLORIDE LEVEL 101 MEQ/L (98-107); CREATININE FOR GFR 0.73 MG/DL (0.70-1.30); GLOMERULAR FILTRATION RATE > 60.0 (>49); GLUCOSE, FASTING 78 MG/DL (70-100); SODIUM LEVEL 135 MEQ/L (136-145); TOTAL PROTEIN 6.7 GM/DL (6.4-8.2)
[2021-01-04 18:41] LABS: WHITE BLOOD COUNT 17.3 10^3/uL (4.0-10.0)
== END ==
LOC: M SFHCADAM 11:08
PROVIDERS: ATTEND Physician Assistant
DX: R11.0 Nausea (principal); I48.91 Unspecified atrial fibrillation; I50.42 Chronic combined systolic (congestive) and diastolic (congestive) heart failure

== ENCOUNTER → 2021-01-22 | Outpatient (CLI) | payer OTHER ==
--- NOTE | 2021-01-22 11:04 | REP ---
INDICATION: OTHER PNEUMOTHORAX. COMPARISON: None. TECHNIQUE: PA and lateral views FINDINGS: Chronic pleural and parenchymal changes in the right lung. Resolution of a right lower lobe infiltrate noted on the previous study. Post biopsy changes right upper lobe. 6 mm nodule adjacent to minor fissure on the right side most likely representing intrapulmonary lymph node. One year follow-up recommended. Heart not enlarged. No failure. IMPRESSION: Resolution of right lower lobe infiltrate noted on the study done 722 21. Small nodule adjacent to minor fissure most likely representing intrapulmonary lymph node. One year follow-up recommended. <Electronically signed by Roberto Sky > 01/22/21 1100
== END ==
LOC: M PLAIMG 09:35
PROVIDERS: ATTEND Thoracic Surgery (Cardiothoracic Vascular Surgery)
DX: J93.83 Other pneumothorax (principal); J43.9 Emphysema, unspecified

== ENCOUNTER → 2021-01-24 | Outpatient (CLI) | payer OTHER | LOC: M LABSMTC 10:02 | PROVIDERS: ATTEND Internal Medicine Cardiovascular Disease | DX: I48.19 Other persistent atrial fibrillation (principal); Z20.822 Contact with and (suspected) exposure to COVID-19 ==

== ENCOUNTER → 2021-02-21 | Outpatient (CLI) | payer OTHER ==
[2021-02-21 16:12] LABS: BLOOD UREA NITROGEN 14 MG/DL (7-18); CALCIUM LEVEL 9.2 MG/DL (8.8-10.2); CARBON DIOXIDE LEVEL 21 MEQ/L (21-32); CHLORIDE LEVEL 108 MEQ/L (98-107); CREATININE FOR GFR 0.73 MG/DL (0.70-1.30); GLOMERULAR FILTRATION RATE > 60.0 (>49); GLUCOSE, FASTING 80 MG/DL (70-100); POTASSIUM SERUM 4.4 MEQ/L (3.5-5.1); SODIUM LEVEL 138 MEQ/L (136-145)
== END ==
LOC: M WUC 14:09
PROVIDERS: ATTEND Internal Medicine Cardiovascular Disease
DX: I48.91 Unspecified atrial fibrillation (principal); I42.0 Dilated cardiomyopathy; I50.22 Chronic systolic (congestive) heart failure

== ENCOUNTER → 2021-04-02 | Outpatient (CLI) | payer OTHER ==
[2021-04-02 12:41] LABS: HEMOGLOBIN 15.2 g/dl (13.5-17.5); MEAN CORPUSCULAR HEMOGLOBIN 27.6 pg (27.0-33.0); MEAN CORPUSCULAR HGB CONC 33.8 g/dl (32.0-36.5); MEAN CORPUSCULAR VOLUME 81.7 fl (80.0-96.0); PLATELET COUNT, AUTOMATED 219 10^3/uL (150-450); RED BLOOD COUNT 5.51 10^6/uL (4.30-6.10); WHITE BLOOD COUNT 8.4 10^3/uL (4.0-10.0)
[2021-04-02 12:59] LABS: HEMOGLOBIN A1c 5.7 %
[2021-04-02 13:20] LABS: ALBUMIN 3.9 GM/DL (3.2-5.2); ALT/SGPT 22 U/L (12-78); BILIRUBIN,TOTAL 0.4 MG/DL (0.2-1.0); BLOOD UREA NITROGEN 13 MG/DL (7-18); CARBON DIOXIDE LEVEL 24 MEQ/L (21-32); CHLORIDE LEVEL 105 MEQ/L (98-107); CHOLESTEROL LEVEL 169 MG/DL (<200); CHOLESTEROL RISK RATIO 5.451 (<5); CREATININE FOR GFR 0.72 MG/DL (0.70-1.30); GLOMERULAR FILTRATION RATE > 60.0 (>49); GLUCOSE, FASTING 102 MG/DL (70-100); HDL CHOLESTEROL 31 MG/DL (>40); LDL CHOLESTEROL 82 MG/DL (<100); NON-HDL-C 138 MG/DL; POTASSIUM SERUM 4.2 MEQ/L (3.5-5.1); SODIUM LEVEL 136 MEQ/L (136-145); TOTAL PROTEIN 7.3 GM/DL (6.4-8.2); TRIGLYCERIDES LEVEL 279 MG/DL (<150)
== END ==
LOC: M WUC 09:12
PROVIDERS: ATTEND Family Medicine
DX: I48.91 Unspecified atrial fibrillation (principal); I50.42 Chronic combined systolic (congestive) and diastolic (congestive) heart failure; E78.2 Mixed hyperlipidemia; R73.09 Other abnormal glucose

== ENCOUNTER → 2021-10-01 | Outpatient (CLI) | payer MEDICARE ==
[~2021-10-01] MED LIST changes: +LOSA25TA13 PO; -LOSA25TA14 PO
[2021-10-01 09:54] LABS: HEMATOCRIT 44.8 % (42.0-52.0); HEMOGLOBIN 15.5 g/dl (13.5-17.5); MEAN CORPUSCULAR HEMOGLOBIN 29.4 pg (27.0-33.0); MEAN CORPUSCULAR HGB CONC 34.6 g/dl (32.0-36.5); MEAN CORPUSCULAR VOLUME 84.8 fl (80.0-96.0); PLATELET COUNT, AUTOMATED 221 10^3/uL (150-450); RED BLOOD COUNT 5.28 10^6/uL (4.30-6.10); WHITE BLOOD COUNT 8.3 10^3/uL (4.0-10.0)
[2021-10-01 10:15] LABS: HEMOGLOBIN A1c 5.9 %
[2021-10-01 10:22] LABS: ALBUMIN 3.9 GM/DL (3.2-5.2); ALT/SGPT 30 U/L (12-78); BILIRUBIN,TOTAL 0.4 MG/DL (0.2-1.0); BLOOD UREA NITROGEN 18 MG/DL (7-18); CALCIUM LEVEL 9.1 MG/DL (8.8-10.2); CARBON DIOXIDE LEVEL 21 MEQ/L (21-32); CHLORIDE LEVEL 109 MEQ/L (98-107); CHOLESTEROL LEVEL 183 MG/DL (<200); CHOLESTEROL RISK RATIO 5.903 (<5); CREATININE FOR GFR 0.84 MG/DL (0.70-1.30); GLOMERULAR FILTRATION RATE > 60.0 (>49); GLUCOSE, FASTING 179 MG/DL (70-100); HDL CHOLESTEROL 31 MG/DL (>40); LDL CHOLESTEROL 95 MG/DL (<100); NON-HDL-C 152 MG/DL; POTASSIUM SERUM 4.3 MEQ/L (3.5-5.1); SODIUM LEVEL 140 MEQ/L (136-145); TOTAL PROTEIN 7.2 GM/DL (6.4-8.2); TRIGLYCERIDES LEVEL 285 MG/DL (<150)
== END ==
LOC: M WUC 08:10
PROVIDERS: ATTEND Family Medicine
DX: I48.91 Unspecified atrial fibrillation (principal); R73.09 Other abnormal glucose; Z12.5 Encounter for screening for malignant neoplasm of prostate; Z79.01 Long term (current) use of anticoagulants; E78.2 Mixed hyperlipidemia
CPT/HCPCS: 36415; 80053; 80061; 83036; 85027; G0103

== ENCOUNTER → 2022-01-28 | Outpatient (CLI) | payer MEDICARE ==
[2022-01-28 11:18] LABS: ALT/SGPT 26 U/L (12-78); BILIRUBIN,TOTAL 0.4 MG/DL (0.2-1.0); BLOOD UREA NITROGEN 10 MG/DL (7-18); CARBON DIOXIDE LEVEL 23 MEQ/L (21-32); CHLORIDE LEVEL 108 MEQ/L (98-107); CHOLESTEROL LEVEL 154 MG/DL (<200); CREATININE FOR GFR 0.75 MG/DL (0.70-1.30); GLOMERULAR FILTRATION RATE > 60.0 (>49); GLUCOSE, FASTING 116 MG/DL (70-100); POTASSIUM SERUM 4.4 MEQ/L (3.5-5.1); SODIUM LEVEL 137 MEQ/L (136-145); TRIGLYCERIDES LEVEL 251 MG/DL (<150)
[2022-01-28 11:19] LABS: ALBUMIN 3.8 GM/DL (3.2-5.2); CHOLESTEROL RISK RATIO 4.666 (<5); FREE T4 0.88 NG/DL (0.76-1.46); HDL CHOLESTEROL 33 MG/DL (>40); LDL CHOLESTEROL 71 MG/DL (<100); NON-HDL-C 121 MG/DL; TOTAL PROTEIN 7.1 GM/DL (6.4-8.2)
== END ==
LOC: M WUC 08:20
PROVIDERS: ATTEND Family Medicine
DX: E78.2 Mixed hyperlipidemia (principal); Z78.9 Other specified health status

== ENCOUNTER → 2022-09-08 | Outpatient (CLI) | payer MEDICARE ==
[2022-09-08 13:23] LABS: HEMOGLOBIN 15.6 g/dl (13.5-17.5); MEAN CORPUSCULAR HEMOGLOBIN 29.7 pg (27.0-33.0); MEAN CORPUSCULAR HGB CONC 33.9 g/dl (32.0-36.5); MEAN CORPUSCULAR VOLUME 87.6 fl (80.0-96.0); PLATELET COUNT, AUTOMATED 209 10^3/uL (150-450); RED BLOOD COUNT 5.25 10^6/uL (4.30-6.10); WHITE BLOOD COUNT 12.9 10^3/uL (4.0-10.0)
[2022-09-08 13:39] LABS: ALBUMIN 3.7 G/DL (3.2-5.2); ALKALINE PHOSPHATASE 52 U/L (46-116); ALT/SGPT 18 U/L (7.0-40); AST/SGOT 14 U/L (<34); BILIRUBIN,TOTAL 0.5 MG/DL (0.3-1.2); BLOOD UREA NITROGEN 14 MG/DL (9-23); CALCIUM LEVEL 9.1 MG/DL (8.3-10.6); CARBON DIOXIDE LEVEL 24 MMOL/L (20-31); CHLORIDE LEVEL 108 MMOL/L (98-107); CHOLESTEROL LEVEL 120 MG/DL (<200); CHOLESTEROL RISK RATIO 3.68 (<5); CREATININE FOR GFR 0.71 MG/DL (0.70-1.30); GLOMERULAR FILTRATION RATE > 60.0 (>49); GLUCOSE, FASTING 95 MG/DL (74-106); HDL CHOLESTEROL 32.6 MG/DL (>40); LDL CHOLESTEROL 40.6 MG/DL (<100); NON-HDL-C 87.4 MG/DL; POTASSIUM SERUM 4.6 MMOL/L (3.5-5.1); SODIUM LEVEL 139 MMOL/L (136-145); TOTAL PROTEIN 6.3 G/DL (5.7-8.2); TRIGLYCERIDES LEVEL 234 MG/DL (<150)
== END ==
LOC: M WUC 09:46
PROVIDERS: ATTEND Family Medicine
DX: E78.2 Mixed hyperlipidemia (principal); R73.09 Other abnormal glucose; I50.42 Chronic combined systolic (congestive) and diastolic (congestive) heart failure

== ENCOUNTER → 2022-09-10 | Outpatient (REF) | payer MEDICARE ==
[2022-09-10 14:08] LABS: RHEUMATOID FACTOR QUANT < 3.5 IU/ML (<14)
== END ==
LOC: M SFHCADAM 08:38
PROVIDERS: ATTEND Family Medicine
DX: M19.041 Primary osteoarthritis, right hand (principal)

== ENCOUNTER → 2022-09-10 | Outpatient (CLI) | payer MEDICARE | LOC: M ADAMS 09:02 | PROVIDERS: ATTEND Family Medicine | DX: M19.041 Primary osteoarthritis, right hand (principal) ==

== ENCOUNTER 2022-09-24 19:13 | Emergency (ER) | payer MEDICARE ==
[2022-09-24] MEDS ORDERED: AMIODARONE HCL 150 MG/100 ML PREMIXED BAG (NEXTERONE) ONE (19:14)
[2022-09-24] MEDS ORDERED: AMIODARONE HCL 360 MG in IV 1 EA IV SCH (19:40)
[2022-09-24] MEDS ORDERED: AMIODARONE 150MG/3ML VIAL IVP STA (19:40)
[2022-09-24] MEDS ORDERED: MIDAZOLAM INJ 2MG/2ML VIAL IV STA (19:40)
[2022-09-24] MEDS ORDERED: MIDAZOLAM INJ 2MG/2ML VIAL As Ordered ONE (19:41)
[2022-09-24 20:01] LABS: BASO # 0.1 10^3/uL (0.0-0.2); BASO % 0.7 % (0.0-1.0); EOS # 0.2 10^3/uL (0.0-0.5); EOS % 2.4 % (0.0-3.0); HEMATOCRIT 45.6 % (42.0-52.0); HEMOGLOBIN 16.2 g/dl (13.5-17.5); LYMPH # 3.8 10^3/uL (1.5-5.0); LYMPH % 37.4 % (24.0-44.0); MEAN CORPUSCULAR HEMOGLOBIN 29.8 pg (27.0-33.0); MEAN CORPUSCULAR HGB CONC 35.5 g/dl (32.0-36.5); MONO # 0.8 10^3/uL (0.0-0.8); NEUTROPHILS # 5.2 10^3/uL (1.5-8.5); NEUTROPHILS % 51.1 % (36.0-66.0); PLATELET COUNT, AUTOMATED 199 10^3/uL (150-450); RED BLOOD COUNT 5.43 10^6/uL (4.30-6.10); WHITE BLOOD COUNT 10.1 10^3/uL (4.0-10.0)
[2022-09-24] MEDS ORDERED: METOPROLOL 5 MG/5 ML VIAL IV STA ×2 (20:01→21:49)
[2022-09-24] MEDS ORDERED: METOPROLOL 5 MG/5 ML VIAL As Ordered ONE (20:03)
[2022-09-24] MEDS ORDERED: METOPROLOL TART 25 MG TABLET PO ONE (20:05)
[2022-09-24 20:11] LABS: INR 1.02; PROTHROMBIN TIME 13.6 SECONDS (12.5-14.5)
[2022-09-24 20:12] LABS: PARTIAL THROMBOPLASTIN TIME 29.9 SECONDS (24.8-34.2)
[2022-09-24 20:33] LABS: BLOOD UREA NITROGEN 18 MG/DL (9-23); CALCIUM LEVEL 8.8 MG/DL (8.3-10.6); CARBON DIOXIDE LEVEL 22 MMOL/L (20-31); CHLORIDE LEVEL 106 MMOL/L (98-107); GLOMERULAR FILTRATION RATE > 60.0 (>49); GLUCOSE, FASTING 202 MG/DL (74-106); MAGNESIUM LEVEL 1.6 MG/DL (1.8-2.4); SODIUM LEVEL 137 MMOL/L (136-145)
[2022-09-24] MEDS ORDERED: MAG SULF 1GM/100ML (MAG RUN) 1 GM in IV 1 EA IV ONE (20:40)
[2022-09-24 20:45] LABS: RSV AMPLIFICATION NEGATIVE (NEGATIVE)
[2022-09-24] MEDS ORDERED: AMIODARONE HCL 150 MG in IV 1 EA IV STA (20:48)
[2022-09-24] MEDS ORDERED: CARV25TA PO (21:02)
[2022-09-24] MEDS ORDERED: ENTR1TAB PO (21:10)
[2022-09-24] MEDS ORDERED: HOME MED LIST COMPLETE! XX SCH (21:10)
[2022-09-24] MEDS ORDERED: PRAV20TA2 PO (21:10)
[2022-09-24] MEDS ORDERED: METOPROLOL TART 50 MG TAB PO ONE (21:50)
[2022-09-24 21:56] VITALS: BP 140/55
[2022-09-24 21:57] VITALS: BP 140/56
== END 2022-09-24 22:04 | disposition short-term general hospital (02) ==
LOC: M ED 19:13
DX: I47.20 Ventricular tachycardia, unspecified (principal); E83.42 Hypomagnesemia; I48.91 Unspecified atrial fibrillation; I50.9 Heart failure, unspecified; J44.9 Chronic obstructive pulmonary disease, unspecified; E78.5 Hyperlipidemia, unspecified; G47.33 Obstructive sleep apnea (adult) (pediatric)
CPT/HCPCS: 71045; 80048; 83735; 83880; 84484; 85025; 85610; 85730; 87631; 93005; 93041; 94760; 96365; 96366; 96368; 96375; 96376; 99285; J0282; J0283; J3475

== ENCOUNTER → 2022-11-05 | Outpatient (CLI) | payer MEDICARE ==
[~2022-11-05] MED LIST changes: +CARV25TA PO; +PRAV20TA2 PO
== END ==
LOC: M WUC 09:18
PROVIDERS: ATTEND Nurse Practitioner
DX: D72.829 Elevated white blood cell count, unspecified (principal); Z79.899 Other long term (current) drug therapy

== ENCOUNTER → 2022-12-11 | Outpatient (REF) | payer MEDICARE ==
[2022-12-11 17:18] LABS: HEMOGLOBIN 14.7 g/dl (13.5-17.5); MEAN CORPUSCULAR HEMOGLOBIN 28.4 pg (27.0-33.0); MEAN CORPUSCULAR HGB CONC 33.4 g/dl (32.0-36.5); MEAN CORPUSCULAR VOLUME 84.9 fl (80.0-96.0); PLATELET COUNT, AUTOMATED 183 10^3/uL (150-450); RED BLOOD COUNT 5.18 10^6/uL (4.30-6.10); WHITE BLOOD COUNT 12.6 10^3/uL (4.0-10.0)
[2022-12-11 17:25] LABS: ALKALINE PHOSPHATASE 54 U/L (46-116); ALT/SGPT 23 U/L (7.0-40); AST/SGOT 10 U/L (<34); BILIRUBIN,TOTAL 0.7 MG/DL (0.3-1.2); BLOOD UREA NITROGEN 14 MG/DL (9-23); CALCIUM LEVEL 9.5 MG/DL (8.3-10.6); CARBON DIOXIDE LEVEL 22 MMOL/L (20-31); CHLORIDE LEVEL 104 MMOL/L (98-107); CREATININE FOR GFR 0.95 MG/DL (0.70-1.30); GLOMERULAR FILTRATION RATE > 60.0 (>49); GLUCOSE, FASTING 91 MG/DL (74-106); POTASSIUM SERUM 3.6 MMOL/L (3.5-5.1); SODIUM LEVEL 136 MMOL/L (136-145); TOTAL PROTEIN 6.6 G/DL (5.7-8.2)
[2022-12-11 17:26] LABS: ALBUMIN 3.7 G/DL (3.2-5.2)
== END ==
LOC: M SFHCADAM 14:26
PROVIDERS: ATTEND Family Medicine
DX: K57.92 Diverticulitis of intestine, part unspecified, without perforation or abscess without bleeding (principal)

== ENCOUNTER → 2023-01-06 | Outpatient (CLI) | payer MEDICARE ==
[~2023-01-06] MED LIST changes: +GASTROGRAFIN SOLUTION 30ML ONE
== END ==
LOC: M PLAIMG 09:02
PROVIDERS: ATTEND Family Medicine
DX: K57.32 Diverticulitis of large intestine without perforation or abscess without bleeding (principal)
CPT/HCPCS: 74176; Q9963

== ENCOUNTER → 2023-01-23 | Outpatient (CLI) | payer MEDICARE ==
[~2023-01-23] MED LIST changes: -GASTROGRAFIN SOLUTION 30ML ONE
[2023-01-23 12:42] LABS: BLOOD UREA NITROGEN 13 MG/DL (9-23); CALCIUM LEVEL 8.9 MG/DL (8.3-10.6); CARBON DIOXIDE LEVEL 21 MMOL/L (20-31); CHLORIDE LEVEL 107 MMOL/L (98-107); GLOMERULAR FILTRATION RATE > 60.0 (>49); GLUCOSE, FASTING 114 MG/DL (74-106); POTASSIUM SERUM 4.3 MMOL/L (3.5-5.1); SODIUM LEVEL 139 MMOL/L (136-145)
== END ==
LOC: M WUC 09:45
PROVIDERS: ATTEND Internal Medicine Cardiovascular Disease
DX: I47.20 Ventricular tachycardia, unspecified (principal); I48.0 Paroxysmal atrial fibrillation; I50.22 Chronic systolic (congestive) heart failure

== ENCOUNTER → 2023-05-21 | Outpatient (CLI) | payer MEDICARE ==
[2023-05-21 13:47] LABS: HEMATOCRIT 46.4 % (42.0-52.0); HEMOGLOBIN 15.1 g/dl (13.5-17.5); MEAN CORPUSCULAR HGB CONC 32.5 g/dl (32.0-36.5); MEAN CORPUSCULAR VOLUME 89.1 fl (80.0-96.0); PLATELET COUNT, AUTOMATED 178 10^3/uL (150-450); RED BLOOD COUNT 5.21 10^6/uL (4.30-6.10); WHITE BLOOD COUNT 7.5 10^3/uL (4.0-10.0)
[2023-05-21 13:51] LABS: CHOLESTEROL RISK RATIO 5.01 (<5); HDL CHOLESTEROL 40.3 MG/DL (>40); LDL CHOLESTEROL 111.9 MG/DL (<100); NON-HDL-C 161.7 MG/DL
[2023-05-21 13:54] LABS: FREE T4 1.26 NG/DL (0.89-1.76)
[2023-05-21 13:56] LABS: THYROID STIMULATING HORMONE 1.651 uIU/ML (0.55-4.78)
[2023-05-21 14:12] LABS: HEMOGLOBIN A1c 5.6 % (4.0-6.0)
== END ==
LOC: M WUC 09:27
PROVIDERS: ATTEND Family Medicine
DX: I42.0 Dilated cardiomyopathy (principal); E78.2 Mixed hyperlipidemia; R73.09 Other abnormal glucose; Z12.5 Encounter for screening for malignant neoplasm of prostate; I50.42 Chronic combined systolic (congestive) and diastolic (congestive) heart failure
CPT/HCPCS: 36415; 80061; 83036; 84439; 84443; 85027; G0103

== ENCOUNTER → 2024-01-08 | Outpatient (CLI) | payer MEDICARE ==
[2024-01-08 10:11] LABS: HEMATOCRIT 49.7 % (42.0-52.0); HEMOGLOBIN 16.7 g/dl (13.5-17.5); MEAN CORPUSCULAR HEMOGLOBIN 28.7 pg (27.0-33.0); MEAN CORPUSCULAR HGB CONC 33.6 g/dl (32.0-36.5); MEAN CORPUSCULAR VOLUME 85.5 fl (80.0-96.0); PLATELET COUNT, AUTOMATED 175 10^3/uL (150-450); RED BLOOD COUNT 5.81 10^6/uL (4.30-6.10); WHITE BLOOD COUNT 8.1 10^3/uL (4.0-10.0)
[2024-01-08 10:42] LABS: ALKALINE PHOSPHATASE 65 U/L (46-116); ALT/SGPT 18 U/L (7.0-40); AST/SGOT 11 U/L (<34); BILIRUBIN,TOTAL 0.5 MG/DL (0.3-1.2); BLOOD UREA NITROGEN 16 MG/DL (9-23); CALCIUM LEVEL 9.2 MG/DL (8.3-10.6); CARBON DIOXIDE LEVEL 22 MMOL/L (20-31); CHLORIDE LEVEL 105 MMOL/L (98-107); CHOLESTEROL LEVEL 180 MG/DL (<200); CHOLESTEROL RISK RATIO 5.15 (<5); CREATININE FOR GFR 0.77 MG/DL (0.70-1.30); GLOMERULAR FILTRATION RATE > 60.0 (>49); GLUCOSE, FASTING 108 MG/DL (74-106); HDL CHOLESTEROL 34.9 MG/DL (>40); LDL CHOLESTEROL 94.1 MG/DL (<100); NON-HDL-C 145.1 MG/DL; POTASSIUM SERUM 4.2 MMOL/L (3.5-5.1); SODIUM LEVEL 137 MMOL/L (136-145); TRIGLYCERIDES LEVEL 255 MG/DL (<150)
[2024-01-08 10:57] LABS: HEMOGLOBIN A1c 6.1 % (4.0-6.0)
== END ==
LOC: M WUC 08:48
PROVIDERS: ATTEND Family Medicine
DX: I42.0 Dilated cardiomyopathy (principal); E78.2 Mixed hyperlipidemia; R73.09 Other abnormal glucose; I50.42 Chronic combined systolic (congestive) and diastolic (congestive) heart failure

== ENCOUNTER → 2025-01-16 | Outpatient (CLI) | payer MEDICARE ==
[~2025-01-16] MED LIST changes: +FURO40TA2 PO; +IVAB5TAB PO; +JARD1TAB PO; +METO1TAB7 PO; -PRAV20TA2 PO; +PRAV20TA78 PO; +SPIR-10 PO
[2025-01-16 10:54] LABS: BASO # 0.1 10^3/uL (0.0-0.2); BASO % 1.0 % (0.0-1.0); EOS # 0.2 10^3/uL (0.0-0.5); EOS % 2.7 % (0.0-3.0); LYMPH # 2.1 10^3/uL (1.5-5.0); LYMPH % 23.2 % (24.0-44.0); MONO # 0.9 10^3/uL (0.0-0.8); MONO % 10.1 % (2.0-8.0); NEUTROPHILS # 5.7 10^3/uL (1.5-8.5); NEUTROPHILS % 62.4 % (36.0-66.0); PLATELET COUNT, AUTOMATED 218 10^3/uL (150-450)
[2025-01-16 11:23] LABS: ALT/SGPT 14 U/L (7.0-40); AST/SGOT 17 U/L (<34); CALCIUM LEVEL 9.6 MG/DL (8.3-10.6); CARBON DIOXIDE LEVEL 22 MMOL/L (20-31); CHLORIDE LEVEL 100 MMOL/L (98-107); CREATININE FOR GFR 0.78 MG/DL (0.70-1.30); DIGOXIN LEVEL 0.5 NG/ML (0.8-2.0); GLOMERULAR FILTRATION RATE > 90.0 (>49); MAGNESIUM LEVEL 2.1 MG/DL (1.8-2.4); POTASSIUM SERUM 4.3 MMOL/L (3.5-5.1); SODIUM LEVEL 138 MMOL/L (136-145)
== END ==
LOC: M PLALAB 07:35
PROVIDERS: ATTEND Internal Medicine Advanced Heart Failure and Transplant Cardiology
DX: I50.23 Acute on chronic systolic (congestive) heart failure (principal); I48.91 Unspecified atrial fibrillation; I42.8 Other cardiomyopathies; I47.20 Ventricular tachycardia, unspecified

== ENCOUNTER → 2025-01-16 | Outpatient (CLI) | payer MEDICARE ==
[2025-01-16 10:55] LABS: PLATELET COUNT, AUTOMATED 236 10^3/uL (150-450)
[2025-01-16 11:13] LABS: ESTIMATED AVERAGE GLUCOSE 128.0 MG/DL (60-110)
[2025-01-16 11:29] LABS: ALT/SGPT 14 U/L (7.0-40); AST/SGOT 18 U/L (<34); CALCIUM LEVEL 9.7 MG/DL (8.3-10.6); CARBON DIOXIDE LEVEL 21 MMOL/L (20-31); CHLORIDE LEVEL 101 MMOL/L (98-107); CHOLESTEROL LEVEL 200 MG/DL (<200); CHOLESTEROL RISK RATIO 5.36 (<5); CREATININE FOR GFR 0.78 MG/DL (0.70-1.30); GLOMERULAR FILTRATION RATE > 90.0 (>49); LDL CHOLESTEROL 102.1 MG/DL (<100); NON-HDL-C 162.7 MG/DL; POTASSIUM SERUM 4.3 MMOL/L (3.5-5.1); PSA SCREENING 0.53 NG/ML (< 4.00); SODIUM LEVEL 138 MMOL/L (136-145); TRIGLYCERIDES LEVEL 303 MG/DL (<150)
[2025-01-16 11:32] LABS: FREE T4 1.43 NG/DL (0.89-1.76)
== END ==
LOC: M PLALAB 07:38
PROVIDERS: ATTEND Family Medicine
DX: R79.89 Other specified abnormal findings of blood chemistry (principal); E78.2 Mixed hyperlipidemia; Z12.5 Encounter for screening for malignant neoplasm of prostate; I50.42 Chronic combined systolic (congestive) and diastolic (congestive) heart failure; R73.09 Other abnormal glucose; I48.91 Unspecified atrial fibrillation; I42.8 Other cardiomyopathies; I47.20 Ventricular tachycardia, unspecified
CPT/HCPCS: 36415; 80053; 80061; 80162; 83036; 83735; 83880; 84439; 84443; 84479; 84481; 85025; 85027; G0103

== ENCOUNTER → 2025-03-07 | Outpatient (CLI) | payer MEDICARE ==
[2025-03-07 15:46] LABS: CALCIUM LEVEL 9.0 MG/DL (8.3-10.6); CARBON DIOXIDE LEVEL 24.0 MMOL/L (20-31); CHLORIDE LEVEL 102.0 MMOL/L (98-107); CREATININE FOR GFR 0.94 MG/DL (0.70-1.30); GLOMERULAR FILTRATION RATE 88.3 (>49); MAGNESIUM LEVEL 2.3 MG/DL (1.8-2.4); POTASSIUM SERUM 4.1 MMOL/L (3.5-5.1); SODIUM LEVEL 136.0 MMOL/L (136-145)
== END ==
LOC: M WUC 08:19
PROVIDERS: ATTEND Internal Medicine Advanced Heart Failure and Transplant Cardiology
DX: I42.9 Cardiomyopathy, unspecified (principal); I48.0 Paroxysmal atrial fibrillation; I47.20 Ventricular tachycardia, unspecified

== ENCOUNTER → 2025-03-23 | Outpatient (CLI) | payer MEDICARE ==
[2025-03-23 15:39] LABS: PLATELET COUNT, AUTOMATED 232 10^3/uL (150-450)
== END ==
LOC: M WUC 12:16
PROVIDERS: ATTEND Internal Medicine
DX: I48.91 Unspecified atrial fibrillation (principal)

== ENCOUNTER → 2025-04-12 | Outpatient (CLI) | payer MEDICARE ==
[2025-04-12 14:46] LABS: BASO # 0.1 10^3/uL (0.0-0.2); BASO % 0.8 % (0.0-1.0); EOS # 0.2 10^3/uL (0.0-0.5); EOS % 2.0 % (0.0-3.0); LYMPH # 1.9 10^3/uL (1.5-5.0); LYMPH % 19.8 % (24.0-44.0); MONO # 1.1 10^3/uL (0.0-0.8); MONO % 11.0 % (2.0-8.0); NEUTROPHILS # 6.3 10^3/uL (1.5-8.5); NEUTROPHILS % 64.8 % (36.0-66.0); PLATELET COUNT, AUTOMATED 241 10^3/uL (150-450)
[2025-04-12 14:52] LABS: ALT/SGPT 14.0 U/L (7.0-40); AST/SGOT 13.0 U/L (<34); CALCIUM LEVEL 9.4 MG/DL (8.3-10.6); CARBON DIOXIDE LEVEL 28.0 MMOL/L (20-31); CHLORIDE LEVEL 100.0 MMOL/L (98-107); CREATININE FOR GFR 0.97 MG/DL (0.70-1.30); GLOMERULAR FILTRATION RATE 85.0 (>49); MAGNESIUM LEVEL 2.2 MG/DL (1.8-2.4); POTASSIUM SERUM 3.7 MMOL/L (3.5-5.1); SODIUM LEVEL 137.0 MMOL/L (136-145)
== END ==
LOC: M WUC 11:29
PROVIDERS: ATTEND Physician Assistant Medical
DX: I50.23 Acute on chronic systolic (congestive) heart failure (principal)

== ENCOUNTER → 2025-04-28 | Outpatient (CLI) | payer MEDICARE ==
[2025-04-28 20:54] LABS: CALCIUM LEVEL 9.1 MG/DL (8.3-10.6); CARBON DIOXIDE LEVEL 24.0 MMOL/L (20-31); CHLORIDE LEVEL 100.0 MMOL/L (98-107); CREATININE FOR GFR 1.25 MG/DL (0.70-1.30); GLOMERULAR FILTRATION RATE 62.7 (>49); MAGNESIUM LEVEL 2.3 MG/DL (1.8-2.4); POTASSIUM SERUM 4.2 MMOL/L (3.5-5.1); SODIUM LEVEL 137.0 MMOL/L (136-145)
== END ==
LOC: M WUC 15:37
PROVIDERS: ATTEND Internal Medicine Advanced Heart Failure and Transplant Cardiology
DX: I50.20 Unspecified systolic (congestive) heart failure (principal); I42.9 Cardiomyopathy, unspecified

== ENCOUNTER → 2025-05-30 | Outpatient (CLI) | payer MEDICARE ==
[2025-05-30 13:04] LABS: ALT/SGPT 14.0 U/L (7.0-40); AST/SGOT 15.0 U/L (<34); CALCIUM LEVEL 8.9 MG/DL (8.3-10.6); CARBON DIOXIDE LEVEL 23.0 MMOL/L (20-31); CHLORIDE LEVEL 103.0 MMOL/L (98-107); CREATININE FOR GFR 1.2 MG/DL (0.70-1.30); GLOMERULAR FILTRATION RATE 65.9 (>49); MAGNESIUM LEVEL 2.2 MG/DL (1.8-2.4); POTASSIUM SERUM 3.9 MMOL/L (3.5-5.1); SODIUM LEVEL 138.0 MMOL/L (136-145)
== END ==
LOC: M WUC 09:46
PROVIDERS: ATTEND Internal Medicine Advanced Heart Failure and Transplant Cardiology
DX: I42.9 Cardiomyopathy, unspecified (principal); I34.0 Nonrheumatic mitral (valve) insufficiency; I48.0 Paroxysmal atrial fibrillation; Z86.79 Personal history of other diseases of the circulatory system; I47.20 Ventricular tachycardia, unspecified